=== PATIENT | female | born 2005 | race Caucasian/White ===

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

== ENCOUNTER 2024-12-10 06:12 | Emergency (ER) | payer OTHER, SELFPAY ==
--- NOTE | ~2024-12-10 | XR_ITS ---
Right Humerus Technique: AP and lateral views were obtained. Clinical History: Pain Findings: No fracture or dislocation is seen. Osseous alignment is anatomic. Visualized joint spaces are grossly preserved. Soft tissues are unremarkable. Impression: Unremarkable examination. No fracture or dislocation. Reviewed, dictated and finalized at location . Impression: Unremarkable examination. No fracture or dislocation.
--- OUTSIDE RECORDS SUMMARY | 2024-12-10 06:17 | XMS_ITS | Clinical Summary ---
Author Organization [facility] Address [address] [place] [address] Phone Care Team Providers Care Manager Of Development Name Role Phone Unavailable Unavailable Unavailable Reason for Visit and Chief Complaint no Pt presents for problem in addition to annual exam - The Chief Complaint is: PATIENT IS HERE FOR[facility] [employer] [employer]. PATIENT HAS A FEW QUESTIONS ABOUT HER SKIN TODAY Problems Includes: Problems addressed during this encounter and other active Problems Current Visit Onset Date Resolved Date Provider Conditio n Status Dermatitis 04/24/2015 ROGER GARCIA M.D. Inactive Last Documented On 10/23/2015 2:31PM ; [facility] Note: Unchanged Routine History and Physical Well Child (6 - 12 Yrs) 04/24/2015 ROGER GARCIA M.D. Inactive Last Documented On 10/23/2015 2:31PM ; [facility] Note: Unchanged Past Visits Onset Date Resolved Date Provider Condition Status Sinusitis Acute 10/23/2015 ROGER BYNUM M.D. Active Last Documented On 10/23/2015 2:31PM ; [facility] Note: Unchanged Viral Syndrome 10/23/2015 ROGER Nicholson M.D. Active Last Documented On 10/23/2015 2:31PM ; [facility] Note: Unchanged Cellulitis 04/10/2015 Unknown ROGER GARCIA M.D. Resolved Last Documented On 04/24/2015 5:23PM ; [facility] Note: Unchanged Knee Sprain 04/10/2015 Unknown ROGER GARCIA M.D. Resolved Last Documented On 04/24/2015 5:23PM ; [facility] Note: Unchanged Plan of Treatment Instructions to patient Instructions for patient Last Documented On 5 5:29PM ; [facility] Maintain a healthy diet Last Documented On 5 5:21PM ; [facility] No Special Instructions or D evices Last Documented On 5 5:21PM ; [facility] Education and Decision Aids were provided during visit for: Education and counseling Last Documented On 5 5:29PM ; [facility] Discussed safety practices Last Documented On 5 5:21PM ; [facility] Discussed nutritional needs Last Documented On 5 5:21PM ; [facility] Discussed education and care er Last Documented On 5 5:21PM ; [facility] Discussed activities Last Documented On 5 5:21PM ; [facility] Discussed concerns Last Documented On 5 5:21PM ; [facility] Assessments Includes: Assessments from this encounter Findings - Normal routine history and physical well-child (6 - 12) - Last Documented On 04/28/2015 2:10PM ; [facility] - Dermatitis - Last Documented On 04/28/2015 2:10PM ; [facility] Patient is approved for participation in School, Physical Education, and Sports for 1 year. - Last Documented On 04/28/2015 2:10PM ; [facility] Instructions Includes: Instructions from this encounter Instructions to patient Instructions for patient Last Documented On 5 5:29PM ; [facility] Maintain a healthy diet Last Documented On 5 5:21PM ; [facility] No Special Instructions or D evices Last Documented On 5 5:21PM ; [facility] Education and Decision Aids were provided during visit for: Education and counseling Last Documented On 5 5:29PM ; [facility] Discussed safety practices Last Documented On 5 5:21PM ; [facility] Discussed nutritional needs Last Documented On 5 5:21PM ; [facility] Discussed education and care er Last Documented On 5 5:21PM ; [facility] Discussed activities Last Documented On 5 5:21PM ; [facility] Discussed concerns Last Documented On 5 5:21PM ; [facility] Medical Equipment - Implanted Devices Includes: Current Devices No Medical Equipment Recorded Medications Includes: Medications discussed during this encounter and other current Medications Discontinued / Stopped on this date ROGER GARCIA M.D. on 04/07/2015 Clindamycin HCl 300 MG Capsule Provider: ROGER GARCIA M.D. Diagnosis: SPRAIN OF KNEE & LEG NOS Last Documented On 04/24/2015 2:35PM By MARTINA EAST MA ; [facility] New / Renewed during this visit ROGER GARCIA M.D. on 04/24/2015 Triamcinolone Acetonide 0.5 % Cream Provider: ROGER GARCIA M.D. 7 day supply: 1 tube, 0 refills Diagnosis: DERMATITIS NOS Apply twice a day Pharmacy: [facility] [address], [phone] - Last Documented On 5 1:17PM By SARAI CAMERON LPN ; [facility] Current Medications (continue as prescribed) Amoxicillin 400 MG/5ML Suspension Reconstituted 10/23/2015 Provider: ROGER GARCIA M.D. Diagnosis: Acute maxillary sinusitis, unspecified 2 tsp bid Last Documented On 10/23/2015 4:40PM By ROGER GARCIA MD ; [facility] Past Medications on file ZyrTEC Allergy 10 MG Tablet 07/19/2015 - 08/18/2015 Provider: RALF MIRANDA [facility]- Diagnosis: Acute nasopharyn gitis [common cold] One tablet daily Last Documented On 5 1:59PM By [facility]F [facility] ; [facility] Malathion 0.5% EX LOTN 12/15/2014 - 12/29/2014 Provide r: ROGER GARCIA M.D. Diagnosis: use as directed on package Last Documented On 5 9:11AM By SARAI CAMERON LPN ; [facility] Fluconazole 150 MG OR TABS 12/04/2012 - 12/06/2012 Pro vider: ROGER GARCIA M.D. Diagnosis: 1/2 tablet today then repeat after 1 week Last Documented On 12/04/2012 4:07PM By ROGER GARCIA MD ; [facility] Medications Administered Includes: Administered Medications from this encounter No Administered Medications Recorded Vital Signs Includes: Vital Signs from this encounter Vital Name 04/24/2015 02:32P Blood Pressure Sitting (mmHg) 100/62 Temp-Tympanic (F) 98.2 Height (in) 57.5 Weight (lb) 87 Body Mass Index (kg/m2) 18.5 BMI Percentile (percentile) 57 Body Surface Area (m2) 1.3 Last Documented: On 04/24/2015 2:36PM ; [facility] Results Includes: Results discussed during this encounter Urinalysis Manual Lab Entry Ordered by ROGER GARCIA M.D. on 2014 Collected: Reported: 04/24/2015 07:58 Last Documented On 5 7:58AM ; [facility] Reviewed on 04/26/2015; All test results are final unless otherwise noted. color YELLOW (Straw-yellow) N (Normal) Last Documented On 5 7:58AM ; [facility] clarity CLEAR (clear) N (Normal) Last Documented On 5 7:58AM ; [facility] Glucose NEG (70-150mg/dL) N (Normal) Last Documented On 5 7:58AM ; [facility] Bilirubin NEG N (Normal) Last Documented On 5 7:58AM ; [facility] Ketone NEG N (Normal) Last Documented On 5 7:58AM ; [facility] SP [place] 1.030 (1.003-1.040) N (Normal) Last Documented On 5 7:58AM ; [facility] pH 5.0 (5.00-9.00) N (Normal) Last Documented On 5 7:58AM ; [facility] Protein NEG N (Normal) Last Documented On 5 7:58AM ; [facility] Urobilinogen 0.2 (0.2-1.0 EU/dL) N (Normal) Last Documented On 5 7:58AM ; [facility] Nitrate NEG N (Normal) Last Documented On 5 7:58AM ; [facility] Blood NEG N (Normal) Last Documented On 5 7:58AM ; [facility] Leukocyte NEG N (Normal) Last Documented On 5 7:58AM ; [facility] History of Present Illness Includes: History of Present Illness from this encounter MECHELLE LIU is a 9 year old female. Source of patient information was another person grandma Source of patient information was patient - Feeling fine - No fever - No eye symptoms - No chest pain or discomfort - No shortness of breath - Cough not causing awakening from sleep - No genitourinary symptoms - No dizziness - No previous history of fainting - No previous history of convulsions - Skin lesion: Social History Description Last Updated Smoking status : Never smoker 04/26/2015 Last Documented On 5 2:10PM ; [facility] Nutritional quality of diet 04/24/2015 Last Documented On 5 2:10PM ; [facility] Nutritious and satisfying diet 5 Last Documented On 5 2:10PM ; [facility] The racial background was unknown ethnic minority 04/24/2015 Last Documented On 5 2:10PM ; [facility] No tobacco use 04/24/2015 Last Documented On 5 2:10PM ; [facility] Not using alcohol 04/24/2015 Last Documented On 5 2:10PM ; [facility] Not using drugs 04/24/2015 Last Documented On 5 2:10PM ; [facility] Procedures and Surgical History Includes: Procedures from this encounter Procedures Code Diagnosis Performing Provider Service L ocation Service Date diet Last Documented On 5 5:21PM ; [facility] education and instructions Last Documented On 5 5:29PM ; [facility] physician's services completed State [facility] sical Form Last Documented On 5 5:21PM ; [facility] Child allowed to participate in Sports Last Documented On 5 5:21PM ; [facility] Child allowed to participate in P.E Last Documented On 5 5:21PM ; [facility] plan of care reviewed and agreed to prev entive care Last Documented On 5 5:21PM ; [facility] SCHOOL/SPORT PHYSICAL Last Documented On 5 5:21PM ; [facility] Mental Health: There is no i nformation the school should know about this student Last Documented On 5 5:21PM ; [facility] No emergency action needed [facility] at [facility] to child's health condition Last Documented On 5 5:21PM ; [facility] Discussed Healthy Eating Last Documented On 5 5:21PM ; [facility] Discussed Exercise Last Documented On 5 5:21PM ; [facility] Clinical summary provided to patient Last Documented On 5 5:29PM ; [facility] Medical History Includes: Medical History addressed during this encounter Description Last Updated No other medical history reported Signs of Insulin Resistance 04/24/2015 Last Documented On 5 2:10PM ; [facility] A PPD was negative 04/24/2015 Last Documented On 5 2:10PM ; [facility] Blood pressure was not high 04/24/2015 Last Documented On 5 2:10PM ; [facility] No cardiac problems 04/24/2015 Last Documented On 5 2:10PM ; [facility] No exposure to tuberculosis 04/24/2015 Last Documented On 5 2:10PM ; [facility] No hearing problems 04/24/2015 Last Documented On 5 2:10PM ; [facility] No heart murmur 04/24/2015 Last Documented On 5 2:10PM ; [facility] No history of asthma 04/24/2015 Last Documented On 5 2:10PM ; [facility] No history of concussion 04/24/2015 Last Documented On 5 2:10PM ; [facility] No history of delayed milestones 015 Last Documented On 5 2:10PM ; [facility] No history of diabetes mellitus 04/24/20 15 Last Documented On 5 2:10PM ; [facility] No history of hematologic disorder 04/24 Last Documented On 5 2:10PM ; [facility] No history of sickle cell abnormality Last Documented On 5 2:10PM ; [facility] No loss of function of one of paired org ans 04/24/2015 Last Documented On 5 2:10PM ; [facility] No orthopedic problems 04/24/2015 Last Documented On 5 2:10PM ; [facility] No previous hospitalizations 04/24/2015 Last Documented On 5 2:10PM ; [facility] No recent severe illness or injury 04/24 Last Documented On 5 2:10PM ; [facility] No Surgery 04/24/2015 Last Documented On 5 2:10PM ; [facility] No trauma to the head 04/24/2015 Last Documented On 5 2:10PM ; [facility] Not born with congenital abnormalities 0 04/24/2015 Last Documented On 5 2:10PM ; [facility] Not carrier of hemophilia A 04/24/2015 Last Documented On 5 2:10PM ; [facility] Family History Includes: Family History addressed during this encounter Description Last Updated Family history of diabetes mellitus 11/2014 Last Documented On 5 5:23PM ; [facility] No family history of diabetes mellitus 0 04/24/2015 Last Documented On 5 2:10PM ; [facility] No family history of sudden early deaths 04/24/2015 Last Documented On 5 2:10PM ; [facility] Cancer 04/03/2011 Last Documented On 5 5:23PM ; [facility] Family history of arthritis 04/03/2011 Last Documented On 5 5:23PM ; [facility] Family history of blood pressure was hig h 04/03/2011 Last Documented On 5 5:23PM ; [facility] Family history of stroke syndrome 2010 Last Documented On 5 5:23PM ; [facility] Review of Systems Includes: Review of Systems from this encounter Systemic: No systemic symptoms. Head: No head symptoms. Neck: No neck symptoms. Eyes: No eye symptoms. Otolaryngeal: No otolaryngeal symptoms. Breasts: No breast symptoms. Cardiovascular: No cardiovascular symptoms. Pulmonary: No pulmonary symptoms. Gastrointestinal: No gastrointestinal symptoms. Genitourinary: No genitourinary symptoms. Endocrine: No endocrine symptoms. Hematologic: No hematologic symptoms. Musculoskeletal: No musculoskeletal symptoms. Neurological: No neurological symptoms. Psychological: No psychological symptoms. Skin: Skin lesion: Mental Status Includes: Mental Status from this encounter No Mental Status Recorded Functional Status Includes: Functional Status from this encounter No Functional Status Recorded Physical Exam Includes: Physical Exam from this encounter Immunizations Includes: Immunizations addressed during this encounter Vaccine Dose # Date Site Reaction(s) Status Source Hep A, ped/adol, (HAVRIX-PEDS)- 2 dose 1 04/24/2015 Right Arm Complete (Administered) [facility] Last Documented On 5 4:18PM ; [facility] HPV, (quadrivalent) Gardasil 1 04/24/2015 Left Arm Complete (Administered) [facility] Last Documented On 5 4:18PM ; [facility] Meningococcal ACYW-135 (Menactra) 1 04/24/2015 Left Arm Complete (Administered) [facility] Last Documented On 5 4:18PM ; [facility] Tdap (Boostrix) 1 04/24/2015 Right Arm Complete (A dministered) [facility] Last Documented On 5 4:18PM ; [facility] Varicella (Chickenpox) 1 04/24/2015 Right Arm Complete (Administered) [facility] Last Documented On 5 4:18PM ; [facility] Allergies Includes: Active Allergies No Known Allergies Encounters Encounter Provider Location Date Check-In Time Check-Out Time Diagnosis [facility] ROGER GARCIA M.D. [facility] 04/24/20 15 2:17PM 3:11PM Dermatitis,A ssessment [use For S.o.a.p. Note Free Text],Routin e History and Physical Well Child (6 - 12 Yrs) Clinical Notes Includes: Clinical Notes from this encounter No Clinical Notes Recorded
[2024-12-10 06:18] VITALS: BP 134/90; PULSE 83; RESP 18; TEMP 36.8; O2SAT 100
--- OUTSIDE RECORDS SUMMARY | 2024-12-10 06:18 | XMS_ITS | Clinical Summary ---
Author Organization [facility] Address [address] [place] [address] Phone Care Team Providers Care Cook Roast Name Role Phone Unavailable Unavailable Unavailable Reason for Visit and Chief Complaint The Chief Complaint is: Nasal congestion and sinus drainage for past 5 days; coughing due to drainage; taking benadryl at night Problems Includes: Problems addressed during this encounter and other active Problems All Visits Onset Date Resolved Date Provider Condition S tatus Sinusitis Acute 10/23/2015 ROGER BYNUM M.D. Active Last Documented On 10/23/2015 2:31PM ; [facility] Note: Unchanged Viral Syndrome 10/23/2015 ROGER Nicholson M.D. Active Last Documented On 10/23/2015 2:31PM ; [facility] Note: Unchanged Plan of Treatment - Return to the clinic if condition worsens or new symptoms arise - Last Documented On 07/19/2015 2:07PM ; [facility] - Patient will call for appointment as needed - Last Documented On 07/19/2015 2:07PM ; [facility] Instructions to patient Instructions for patient Last Documented On 5 1:49PM ; [facility] Assessments Includes: Assessments from this encounter Findings - Common cold - Last Documented On 07/19/2015 2:07PM ; [facility] Instructions Includes: Instructions from this encounter Instructions to patient Instructions for patient Last Documented On 5 1:49PM ; [facility] Medical Equipment - Implanted Devices Includes: Current Devices No Medical Equipment Recorded Medications Includes: Medications discussed during this encounter and other current Medications New / Renewed during this visit RALF MIRANDA [place] on 07/19/2015 ZyrTEC Allergy 10 MG Tablet Provider: RALF MIRANDA [facility]- 30 day supply: 30 tablet, 0 refills Diagnosis: Acute nasopharyngitis [commo n cold] One tablet daily Pharmacy: [facility] [address], [id number] - Last Documented On 5 1:59PM By RALF MIRANDA [facility] ; [facility] Current Medications (continue as prescribed) Amoxicillin 400 MG/5ML Suspension Reconstituted 10/23/2015 Provider: ROGER GARCIA M.D. Diagnosis: Acute maxillary sinusitis, unspecified 2 tsp bid Last Documented On 10/23/2015 4:40PM By ROGER GARCIA MD ; [facility] Past Medications on file Malathion 0.5% EX LOTN 12/15/2014 - 12/29/2014 Provide r: ROGER GARCIA M.D. Diagnosis: use as directed on package Last Documented On 5 9:11AM By SARAI CAMERON LPN ; [facility] Fluconazole 150 MG OR TABS 12/04/2012 - 12/06/2012 Pro vider: ROGER GARCIA M.D. Diagnosis: 1/2 tablet today then repeat after 1 week Last Documented On 12/04/2012 4:07PM By ROGER GARCIA MD ; [facility] Medications Administered Includes: Administered Medications from this encounter No Administered Medications Recorded Vital Signs Includes: Vital Signs from this encounter Vital Name 07/19/2015 01:33P Blood Pressure Sitting (mmHg) 102/60 Temp-Tympanic (F) 97.7 Height (in) 57.5 Weight (lb) 91.8 Body Mass Index (kg/m2) 19.5 BMI Percentile (percentile) 67 Body Surface Area (m2) 1.3 Last Documented: On 07/19/2015 1:38PM ; [facility] Results Includes: Results discussed during this encounter No Results Recorded For Specified Dates History of Present Illness Includes: History of Present Illness from this encounter MECHELLE LIU is a 9 year old female. Source of patient information was mother Source of patient information was patient ? Medication list reviewed - Patient accompanied by mother - Duration of symptoms for 5 days - Previously well - No fever - No chills - No headache - No sinus pain - No sinus pressure - No swollen glands in the neck - No itching of the eyes - No discharge from the eyes - Nasal discharge - Postnasal drip - Nasal passage blockage (stuffiness) - Sneezing - No earache - The ears do not feel pressured - The ears do not feel full - No discharge from the ears - No hoarseness - No sore throat - No itchy throat - No chest pain or discomfort - No palpitations - Cough dry - Non-productive - Not feeling congested in the chest - No dyspnea - No wheezing - No rash Symptoms started 5 days ago. [place] reports that she is feeling better now than when it started and everyday feels a little better. Taking benadryl at night only. No other OTC meds. Mom reports that she brought her in because she has a soccer game on Friday that she needs to be well for. Social History Description Last Updated Currently in school 10/23/2015 Last Documented On 5 1:49PM ; [facility] No recent decrease in exercise activity 07/19/2015 Last Documented On 5 2:07PM ; [facility] Smoking status : Never smoker 04/26/2015 Last Documented On 5 1:49PM ; [facility] Nutritional quality of diet 04/24/2015 Last Documented On 5 1:49PM ; [facility] Nutritious and satisfying diet Last Documented On 5 1:49PM ; [facility] The racial background was unknown ethnic minority 04/24/2015 Last Documented On 5 1:49PM ; [facility] Not using alcohol 04/24/2015 Last Documented On 5 1:49PM ; [facility] Not using drugs 04/24/2015 Last Documented On 5 1:49PM ; [facility] Child cared for at home 02/18/2014 Last Documented On 5 1:49PM ; [facility] Procedures and Surgical History Includes: Procedures from this encounter Procedures Code Diagnosis Performing Provider Service L ocation Service Date Patient verbalizes understanding Last Documented On 5 1:49PM ; [facility] Increase fluids Last Documented On 5 1:49PM ; [facility] Clinical summary provided to patient Last Documented On 5 1:49PM ; [facility] Medical History Includes: Medical History addressed during this encounter Description Last Updated No recent change in medical history 05/23 Last Documented On 5 1:49PM ; [facility] No other medical history reported Signs of Insulin Resistance 04/24/2015 Last Documented On 5 1:49PM ; [facility] A PPD was negative 04/24/2015 Last Documented On 5 1:49PM ; [facility] Blood pressure was not high 04/24/2015 Last Documented On 5 1:49PM ; [facility] No cardiac problems 04/24/2015 Last Documented On 5 1:49PM ; [facility] No exposure to tuberculosis 04/24/2015 Last Documented On 5 1:49PM ; [facility] No hearing problems 04/24/2015 Last Documented On 5 1:49PM ; [facility] No heart murmur 04/24/2015 Last Documented On 5 1:49PM ; [facility] No history of asthma 04/24/2015 Last Documented On 5 1:49PM ; [facility] No history of concussion 04/24/2015 Last Documented On 5 1:49PM ; [facility] No history of delayed milestones 015 Last Documented On 5 1:49PM ; [facility] No history of diabetes mellitus 04/24/20 15 Last Documented On 5 1:49PM ; [facility] No history of hematologic disorder 04/24 Last Documented On 5 1:49PM ; [facility] No history of sickle cell abnormality Last Documented On 5 1:49PM ; [facility] No loss of function of one of paired org ans 04/24/2015 Last Documented On 5 1:49PM ; [facility] No orthopedic problems 04/24/2015 Last Documented On 5 1:49PM ; [facility] No previous hospitalizations 04/24/2015 Last Documented On 5 1:49PM ; [facility] No recent severe illness or injury 04/24 Last Documented On 5 1:49PM ; [facility] No Surgery 04/24/2015 Last Documented On 5 1:49PM ; [facility] No trauma to the head 04/24/2015 Last Documented On 5 1:49PM ; [facility] Not born with congenital abnormalities 0 04/24/2015 Last Documented On 5 1:49PM ; [facility] Not carrier of hemophilia A 04/24/2015 Last Documented On 5 1:49PM ; [facility] Born by vaginal delivery 04/03/2011 Last Documented On 5 1:49PM ; [facility] Gestational age: 37 04/03/2011 Last Documented On 5 1:49PM ; [facility] History of length at 19:1/2 in Last Documented On 5 1:49PM ; [facility] Patient's weight 6:3 lbs 1 Last Documented On 5 1:49PM ; [facility] Family History Includes: Family History addressed during this encounter Description Last Updated Family history unchanged 06/09/2015 Last Documented On 5 1:49PM ; [facility] No family history of diabetes mellitus 0 04/24/2015 Last Documented On 5 1:49PM ; [facility] No family history of sudden early deaths 04/24/2015 Last Documented On 5 1:49PM ; [facility] Cancer 04/03/2011 Last Documented On 5 1:49PM ; [facility] Family history of arthritis 04/03/2011 Last Documented On 5 1:49PM ; [facility] Family history of blood pressure was hig h 04/03/2011 Last Documented On 5 1:49PM ; [facility] Family history of stroke syndrome 2010 Last Documented On 5 1:49PM ; [facility] Review of Systems Includes: Review of Systems from this encounter No Review of Systems Recorded Mental Status Includes: Mental Status from this encounter Description Oriented to time, place, and person Functional Status Includes: Functional Status from this encounter No Functional Status Recorded Physical Exam Includes: Physical Exam from this encounter Allergies Includes: Active Allergies No Known Allergies Encounters Encounter Provider Location Date Check-In Time Check-Out Time Diagnosis SAME DAY SICK VISIT RALF MIRANDA HNP- [facility] 07/19/20 15 1:22PM 1:59PM Common Cold Clinical Notes Includes: Clinical Notes from this encounter No Clinical Notes Recorded
--- OUTSIDE RECORDS SUMMARY | 2024-12-10 06:18 | XMS_ITS | Clinical Summary ---
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 Gender Identity Not on file Sexual Orientation Not on file Plan of Treatment Health Maintenance Due Date Last Done Comments Cervical Cancer Screening Pa p Smear (Age 21 to 29) Every 3 Years 2003 Cervical Cancer Screening 2003 Annual Physical 2006 HPV Vaccines (1 - 3-dose series) 2018 Meningococcal B Vaccine (1 o f 2 - Standard) 2019 Hepatitis C 2021 DTaP, Tdap and Td Vaccines ( 1 - Tdap) 2022 Hepatitis B Vaccines (1 of 3 - 19+ 3-dose series) 2022 COVID-19 Vaccine (1 - 2023-2 5 season) 2024 Influenza Adult (#1) 2024 Meningococcal Vaccine Aged Out No fermin filiberto eligible based on patient's age to complete this topic Pneumococcal Vaccine: Pediat rics (0 to 5 Years) and At-Risk Patients (6 to 64 Years) Aged Out No longer eligible b ased on patient's age to complete this topic RSV Immunizations Under 20 Months Aged Out No longer eligible based on patient's age to complete this topic
--- OUTSIDE RECORDS SUMMARY | 2024-12-10 06:18 | XMS_ITS | Clinical Summary ---
Author Organization [facility] Address [address] [place] [address] Phone Care Team Providers Care Computer Technologist Name Role Phone Unavailable Unavailable Unavailable Reason for Visit and Chief Complaint The Chief Complaint is: Burning with urination and lower abdominal pain for past week; also noticedsome blood in toilet and on tissue after last 3 bowel movements Problems Includes: Problems addressed during this encounter and other active Problems All Visits Onset Date Resolved Date Provider Condition S tatus Sinusitis Acute 10/23/2015 ROGER BYNUM M.D. Active Last Documented On 10/23/2015 2:31PM ; [facility] Note: Unchanged Viral Syndrome 10/23/2015 ROGER Nicholson M.D. Active Last Documented On 10/23/2015 2:31PM ; [facility] Note: Unchanged Plan of Treatment - Return to the clinic if condition worsens or new symptoms arise - Last Documented On 06/09/2015 1:47PM ; [facility] - Patient will call for appointment as needed - Last Documented On 06/09/2015 1:47PM ; [facility] Assessments Includes: Assessments from this encounter Findings - Constipation - Last Documented On 06/09/2015 1:47PM ; [facility] - Dysuria - Last Documented On 06/09/2015 1:47PM ; [facility] Medical Equipment - Implanted Devices Includes: Current Devices No Medical Equipment Recorded Medications Includes: Medications discussed during this encounter and other current Medications Discontinued / Stopped on this date ROGER GARCIA M.D. on 04/24/2015 Triamcinolone Acetonide 0.5 % Cream Provi dianna: ROGER GARCIA M.D. Diagnosis: DERMATITIS NOS Last Documented On 5 1:17PM By SARAI CAMERON LPN ; [facility] Current Medications (continue as prescribed) Amoxicillin 400 MG/5ML Suspension Reconstituted 10/23/2015 Provider: ROGER GARCIA M.D. Diagnosis: Acute maxillary sinusitis, unspecified 2 tsp bid Last Documented On 10/23/2015 4:40PM By ROGER GARCIA MD ; [facility] Past Medications on file ZyrTEC Allergy 10 MG Tablet 07/19/2015 - 08/18/2015 Provider: RALF MIRANDA [facility]- MANUFACTURING ENGINEERING PROFESSOR- Diagnosis: Acute nasopharyn gitis [common cold] One tablet daily Last Documented On 5 1:59PM By RALF MIRANDA [facility]- ; [facility] Malathion 0.5% EX LOTN 12/15/2014 - 12/29/2014 Provide r: ROGER GARCIA M.D. Diagnosis: use as directed on package Last Documented On 5 9:11AM By SARAI CAMERON LPN ; [facility] Fluconazole 150 MG OR TABS 12/04/2012 - 12/06/2012 Pro vider: ROGER GARCIA M.D. Diagnosis: 1/2 tablet today then repeat after 1 week Last Documented On 12/04/2012 4:07PM By ROGER GARCIA MD ; [facility] Medications Administered Includes: Administered Medications from this encounter No Administered Medications Recorded Vital Signs Includes: Vital Signs from this encounter Vital Name 06/09/2015 01:10P Blood Pressure Sitting (mmHg) 110/70 Temp-Tympanic (F) 97.9 Height (in) 57.5 Weight (lb) 91 Body Mass Index (kg/m2) 19.4 BMI Percentile (percentile) 67 Body Surface Area (m2) 1.3 Last Documented: On 06/09/2015 1:16PM ; [facility] Results Includes: Results discussed during this encounter Urinalysis Manual Lab Entry Ordered by RALF MIRANDA [facility]- on 06/09/2015 Collected: Reported: 06/09/2015 13:25 Last Documented On 5 1:25PM ; [facility] Reviewed on 06/09/2015; All test results are final unless otherwise noted. color yellow (Straw-yellow) N (Normal) Last Documented On 5 1:25PM ; [facility] clarity clear (clear) N (Normal) Last Documented On 5 1:25PM ; [facility] Glucose neg (70-150mg/dL) N (Normal) Last Documented On 5 1:25PM ; [facility] Bilirubin neg N (Normal) Last Documented On 5 1:25PM ; [facility] Ketone neg N (Normal) Last Documented On 5 1:25PM ; [facility] SP [place] 1.025 (1.003-1.040) N (Normal) Last Documented On 5 1:25PM ; [facility] pH 7.0 (5.00-9.00) N (Normal) Last Documented On 5 1:25PM ; [facility] Protein neg N (Normal) Last Documented On 5 1:25PM ; [facility] Urobilinogen 0.2 (0.2-1.0 EU/dL) N (Normal) Last Documented On 5 1:25PM ; [facility] Nitrate neg N (Normal) Last Documented On 5 1:25PM ; [facility] Blood neg N (Normal) Last Documented On 5 1:25PM ; [facility] Leukocyte neg N (Normal) Last Documented On 5 1:25PM ; [facility] History of Present Illness Includes: History of Present Illness from this encounter MECHELLE LIU is a 9 year old female. Source of patient information was mother Source of patient information was patient ? Medication list reviewed - Patient accompanied by mother - Duration of symptoms for 1 week - No fever - No chills - No recent weight loss - No dyspnea - No cough - Suprapubic pain -intermittent - Red blood on the surface of the stool - on toilet paper after having BM - Constipation with straining - Constipation - Normal appetite - No nausea - No vomiting - No bloating - No flatus - No diarrhea - Dysuria -intermittent- better now - Burning sensation during urination -intermittent-better now - No hematuria - No cloudy urine - No foul-smelling urine - No increase in urinary frequency - No urinary urgency - No flank pain Reports having burning with urination for a week that is intermittent and is better now than it was. Constipation issues that started when school started but worse past week. She reports she does not want to poop at school because she fears someone might walk in on her and tell the whole school. She reports that she has to push when having a BM. Noticed having blood on toilet paper after bowel movement x 3 episodes. Reports small amount of blood that is bright red on toilet paper. Denies stool in stool. Does not want her bottom looked at. Does not drink much water. Has bowel movement every 3 or more days. Social History Description Last Updated Currently in school 10/23/2015 Last Documented On 5 1:17PM ; [facility] Smoking status : Never smoker 04/26/2015 Last Documented On 5 1:17PM ; [facility] Nutritional quality of diet 04/24/2015 Last Documented On 5 1:17PM ; [facility] Nutritious and satisfying diet 5 Last Documented On 5 1:17PM ; [facility] The racial background was unknown ethnic minority 04/24/2015 Last Documented On 5 1:17PM ; [facility] Not using alcohol 04/24/2015 Last Documented On 5 1:17PM ; [facility] Not using drugs 04/24/2015 Last Documented On 5 1:17PM ; [facility] Procedures and Surgical History Includes: Procedures from this encounter Procedures Code Diagnosis Performing Provider Service L ocation Service Date Clinical summary provided to patient Last Documented On 5 1:17PM ; [facility] Medical History Includes: Medical History addressed during this encounter Description Last Updated No recent change in medical history 05/23 Last Documented On 5 1:47PM ; [facility] No other medical history reported Signs of Insulin Resistance 04/24/2015 Last Documented On 5 1:17PM ; [facility] A PPD was negative 04/24/2015 Last Documented On 5 1:17PM ; [facility] Blood pressure was not high 04/24/2015 Last Documented On 5 1:17PM ; [facility] No cardiac problems 04/24/2015 Last Documented On 5 1:17PM ; [facility] No exposure to tuberculosis 04/24/2015 Last Documented On 5 1:17PM ; [facility] No hearing problems 04/24/2015 Last Documented On 5 1:17PM ; [facility] No heart murmur 04/24/2015 Last Documented On 5 1:17PM ; [facility] No history of asthma 04/24/2015 Last Documented On 5 1:17PM ; [facility] No history of concussion 04/24/2015 Last Documented On 5 1:17PM ; [facility] No history of delayed milestones 015 Last Documented On 5 1:17PM ; [facility] No history of diabetes mellitus 04/24/20 15 Last Documented On 5 1:17PM ; [facility] No history of hematologic disorder 04/24 Last Documented On 5 1:17PM ; [facility] No history of sickle cell abnormality Last Documented On 5 1:17PM ; [facility] No loss of function of one of paired org ans 04/24/2015 Last Documented On 5 1:17PM ; [facility] No orthopedic problems 04/24/2015 Last Documented On 5 1:17PM ; [facility] No previous hospitalizations 04/24/2015 Last Documented On 5 1:17PM ; [facility] No recent severe illness or injury 04/24 Last Documented On 5 1:17PM ; [facility] No Surgery 04/24/2015 Last Documented On 5 1:17PM ; [facility] No trauma to the head 04/24/2015 Last Documented On 5 1:17PM ; [facility] Not born with congenital abnormalities 0 04/24/2015 Last Documented On 5 1:17PM ; [facility] Not carrier of hemophilia A 04/24/2015 Last Documented On 5 1:17PM ; [facility] Born by vaginal delivery 04/03/2011 Last Documented On 5 1:17PM ; [facility] Gestational age: 37 04/03/2011 Last Documented On 5 1:17PM ; [facility] History of length at 19:1/2 in Last Documented On 5 1:17PM ; [facility] Patient's weight 6:3 lbs 1 Last Documented On 5 1:17PM ; [facility] Family History Includes: Family History addressed during this encounter Description Last Updated Family history unchanged 06/09/2015 Last Documented On 5 1:47PM ; [facility] No family history of diabetes mellitus 0 04/24/2015 Last Documented On 5 1:17PM ; [facility] No family history of sudden early deaths 04/24/2015 Last Documented On 5 1:17PM ; [facility] Cancer 04/03/2011 Last Documented On 5 1:17PM ; [facility] Family history of arthritis 04/03/2011 Last Documented On 5 1:17PM ; [facility] Family history of blood pressure was hig h 04/03/2011 Last Documented On 5 1:17PM ; [facility] Family history of stroke syndrome 2010 Last Documented On 5 1:17PM ; [facility] Review of Systems Includes: Review of Systems [...] Location Date Check-In Time Check-Out Time Diagnosis PROBLEM VISIT RALF MIRANDA PMHNP-[facility] MANUFACTURING ENGINEERING PROFESSOR-[facility] 06/09/20 15 1:00PM 1:40PM Constipation ,Dysuria Clinical Notes Includes: Clinical Notes from this encounter No Clinical Notes Recorded
--- OUTSIDE RECORDS SUMMARY | 2024-12-10 06:18 | XMS_ITS | Clinical Summary ---
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 Active Last Documented On 10/23/2015 2:31PM ; [facility] Note: Unchanged Viral Syndrome 10/23/2015 ROGER Nicholson M.D. Active Last Documented On 10/23/2015 2:31PM ; [facility] Note: Unchanged Sinusitis Acute 02/18/2014 Unknown ROGER BYNUM M.D. Resolved Last Documented On 12/05/2014 3:22PM ; [facility] Note: Unchanged Past Visits Onset Date Resolved Date Provider Condition Status Dermatitis 04/24/2015 ROGER GARCIA M.D. Inactive Last Documented On 10/23/2015 2:31PM ; [facility] Note: Unchanged Routine History and Physical Well Child (6 - 12 Yrs) 04/24/2015 ROGER GARCIA M.D. Inactive Last Documented On 10/23/2015 2:31PM ; [facility] Note: Unchanged Plan of Treatment - Return to the clinic if condition worsens or new symptoms arise - Last Documented On 10/23/2015 2:32PM ; [facility] - Follow-up visit as needed with an office visit. - Last Documented On 10/23/2015 2:32PM ; [facility] - Patient to call if problem develops - Last Documented On 10/23/2015 2:32PM ; [facility] Instructions to patient Instructions for patient Last Documented On 6 2:32PM ; [facility] Education and Decision Aids were provided during visit for: Patient education about anti biotics: need to finish even if feeling better Last Documented On 6 2:31PM ; [facility] Assessments Includes: Assessments from this encounter Findings - Acute sinusitis - Last Documented On 10/23/2015 2:32PM ; [facility] - Viral syndrome - Last Documented On 10/23/2015 2:32PM ; [facility] Instructions Includes: Instructions from this encounter Instructions to patient Instructions for patient Last Documented On 6 2:32PM ; [facility] Education and Decision Aids were provided during visit for: Patient education about anti biotics: need to finish even if feeling better Last Documented On 6 2:31PM ; [facility] Medical Equipment - Implanted Devices Includes: Current Devices No Medical Equipment Recorded Medications Includes: Medications discussed during this encounter and other current Medications New / Renewed during this visit ROGER GARCIA M.D. on 10/23/2015 Amoxicillin 400 MG/5ML Suspension Reconstituted Provider: ROGER GARCIA M.D. 10 day supply: 200 mL, 0 refills Diagnosis: Acute maxillary sinusitis, unspecified 2 tsp bid Pharmacy: [facility] [address], [phone] - Last Documented On 10/23/2015 4:40PM By ROGER GARCIA MD ; [facility] Past Medications on file ZyrTEC Allergy 10 MG Tablet 07/19/2015 - 08/18/2015 [facility] CRIMINAL INTELLIGENCE ANALYST- Diagnosis: Acute nasopharyn gitis [common cold] One tablet daily Last Documented On 5 1:59PM By RALF MIRANDA CRIMINAL INTELLIGENCE ANALYST- ; [facility] Malathion 0.5% EX LOTN 12/15/2014 - 12/29/2014 Provide r: ROGER GARCIA M.D. Diagnosis: use as directed on package Last Documented On 5 9:11AM By SARAI CAMERON LPN ; [facility] Fluconazole 150 MG OR TABS 12/04/2012 - 12/06/2012 Pro vider: ROGER GARCIA M.D. Diagnosis: 1/2 tablet today then repeat after 1 week Last Documented On 12/04/2012 4:07PM By ROGER GARCIA MD ; [facility] Medications Administered Includes: Administered Medications from this encounter No Administered Medications Recorded Vital Signs Includes: Vital Signs from this encounter Vital Name 10/23/2015 02:12P Temp-Tympanic (F) 98.3 Height (in) 59 Weight (lb) 100 Body Mass Index (kg/m2) 20.2 BMI Percentile (percentile) 73 Body Surface Area (m2) 1.4 Last Documented: On 10/23/2015 2:13PM ; [facility] Results Includes: Results discussed during this encounter No Results Recorded For Specified Dates History of Present Illness Includes: History of Present Illness from this encounter MECHELLE LIU is a 10 year old female. Source of patient information was another person grandma Source of patient information was patient - Not feeling fine - No fever - Sinus pain - Nasal discharge yellow - Purulent - Nasal passage blockage (stuffiness) - Sneezing - Sore throat comes and goes - Cough during the day - During the night - No dyspnea - No wheezing - Appetite not normal - Decreased appetite Social History Description Last Updated Currently in school 10/23/2015 Last Documented On 6 2:32PM ; [facility] Smoking Status Unknown Procedures and Surgical History Includes: Procedures from this encounter Procedures Code Diagnosis Performing Provider Service L ocation Service Date medication instruction Last Documented On 6 2:31PM ; [facility] the options include decongestants as nee ded per product instructions Last Documented On 6 2:29PM ; [facility] the options include antihistamines as ne eded per product instructions Last Documented On 6 2:29PM ; [facility] education and instructions Last Documented On 6 2:32PM ; [facility] the options include close observation Last Documented On 6 2:29PM ; [facility] Pt to use OTC expectorant product as nee ded per product instruction.~ Last Documented On 6 2:29PM ; [facility] Pt to use prescription as ordered. Purpo se of and use of medication discussed.~ Last Documented On 6 2:29PM ; [facility] plan of care reviewed and agreed to nader khan Last Documented On 6 2:31PM ; [facility] Clinical summary provided to patient Last Documented On 6 2:32PM ; [facility] Medical History Includes: Medical History addressed during this encounter No Medical History Recorded Family History Includes: Family History addressed during this encounter Description Last Updated Family history unchanged 06/09/2015 Last Documented On 6 2:31PM ; [facility] No family history of diabetes mellitus 0 04/24/2015 Last Documented On 6 2:31PM ; [facility] No family history of sudden early deaths 04/24/2015 Last Documented On 6 2:31PM ; [facility] Cancer 04/03/2011 Last Documented On 6 2:31PM ; [facility] Family history of arthritis 04/03/2011 Last Documented On 6 2:31PM ; [facility] Family history of blood pressure was hig h 04/03/2011 Last Documented On 6 2:31PM ; [facility] Family history of stroke syndrome 2010 Last Documented On 6 2:31PM ; [facility] Review of Systems Includes: Review of Systems from this encounter Systemic: No systemic symptoms and no fever. Head: No head symptoms. Neck: No neck symptoms. Eyes: No eye symptoms. Otolaryngeal: Nasal discharge and sore throat. Breasts: No breast symptoms. Cardiovascular: No cardiovascular symptoms. Pulmonary: Cough. No wheezing. Gastrointestinal: No gastrointestinal symptoms. Genitourinary: No genitourinary symptoms. Endocrine: No endocrine symptoms. Hematologic: No hematologic symptoms. Musculoskeletal: No musculoskeletal symptoms. Neurological: No neurological symptoms. Psychological: No psychological symptoms. Skin: No skin symptoms. Mental Status Includes: Mental Status from this encounter Description Oriented to time, place, and person Functional Status Includes: Functional Status from this encounter No Functional Status Recorded Physical Exam Includes: Physical Exam from this encounter Allergies Includes: Active Allergies No Known Allergies Encounters Encounter Provider Location Date Check-In Time Check-Out Time Diagnosis SAME DAY SICK VISIT ROGER GARCIA M.D. [facility] 10/23/19 16 2:15PM 2:28PM Sinusitis Acute,Viral Syndrome Clinical Notes Includes: Clinical Notes from this encounter No Clinical Notes Recorded
--- OUTSIDE RECORDS SUMMARY | 2024-12-10 06:18 | XMS_ITS ---
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
--- OUTSIDE RECORDS SUMMARY | 2024-12-10 06:18 | XMS_ITS | Clinical Summary ---
Author Organization [facility] Address [address] [place] [address] Phone Care Team Providers Care Setter Machine Name Role Phone Unavailable Unavailable Unavailable Reason for Visit and Chief Complaint The Chief Complaint is: PATIENT IS HERE FOR LEFT KNEE PAIN FOR 2 DAYS AFTER A FALL. 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 Resolved Last Documented On 04/24/2015 5:23PM ; [facility] Note: Unchanged Knee Sprain 04/10/2015 Unknown ROGER GARCIA M.D. Resolved Last Documented On 04/24/2015 5:23PM ; [facility] Note: Unchanged Past Visits Onset Date Resolved Date Provider Condition Status Sinusitis Acute 10/23/2015 ROGER BYNUM M.D. Active Last Documented On 10/23/2015 2:31PM ; [facility] Note: Unchanged Viral Syndrome 10/23/2015 ROGER Nicholson M.D. Active Last Documented On 10/23/2015 2:31PM ; [facility] Note: Unchanged Abscess 12/05/2014 Unknown ROGER GARCIA M.D. Resolved Last Documented On 04/10/2015 11:16AM ; [facility] Note: Unchanged Subungual Hematoma 12/05/2014 Unknown ROGER GARCIA M.D. Resolved Last Documented On 04/10/2015 11:16AM ; [facility] Note: Unchanged Plan of Treatment - Follow-up visit as needed with an office visit. - Last Documented On 04/10/2015 11:17AM ; [facility] Referrals To Diagnosis Orthopedic MADISON WELCH MD SPRAIN OF KNE E & LEG NOS Note: Knee pain and left kne e effussion Last Documented On 5 8:35PM ; [facility] Instructions to patient Instructions for patient Last Documented On 5 11:16AM ; [facility] Education and Decision Aids were provided during visit for: Education and counseling Last Documented On 5 11:16AM ; [facility] Assessments Includes: Assessments from this encounter Findings - Cellulitis - Last Documented On 04/10/2015 11:17AM ; [facility] - Knee sprain /pain/swelling/effusion. left knee - Last Documented On 04/10/2015 11:17AM ; [facility] Instructions Includes: Instructions from this encounter Instructions to patient Instructions for patient Last Documented On 5 11:16AM ; [facility] Education and Decision Aids were provided during visit for: Education and counseling Last Documented On 5 11:16AM ; [facility] Medical Equipment - Implanted Devices Includes: Current Devices No Medical Equipment Recorded Medications Includes: Medications discussed during this encounter and other current Medications Discontinued / Stopped on this date ROGER GARCIA M.D. on 12/05/2014 Sulfamethoxazole-Trimethopri m 200-40 MG/5ML Suspension Provider: ROGER GARCIA M.D. Diagnosis: Cellulitis NOS Last Documented On 04/07/2015 10:09AM By MARTINA EAST MA ; [facility] New / Renewed during this visit ROGER GARCIA M.D. on 04/07/2015 Clindamycin HCl 300 MG Capsule Provider: ROGER GARCIA M.D. 10 day supply: 20 capsule, 0 refills Diagnosis: SPRAIN OF KNEE & LEG NOS 1 CAPSULE TWO TIMES A DAY [facility]acy: [email or web address] [address], [phone] - Last Documented On 04/24/2015 2:35PM By MARTINA EAST MA ; [facility] Current Medications (continue as prescribed) Amoxicillin 400 MG/5ML Suspension Reconstituted 10/23/2015 Provider: ROGER GARCIA M.D. Diagnosis: Acute maxillary sinusitis, unspecified 2 tsp bid Last Documented On 10/23/2015 4:40PM By ROGER GARCIA MD ; [facility] Past Medications on file ZyrTEC Allergy 10 MG Tablet 07/19/2015 - 08/18/2015 Provider: RALF MIRANDA [facility] Diagnosis: Acute nasopharyn gitis [common cold] One tablet daily Last Documented On 5 1:59PM By RALF MIRANDA [facility] ; [facility] Malathion 0.5% EX LOTN 12/15/2014 - 12/29/2014 Provide r: ROGER GARCIA M.D. Diagnosis: use as directed on package Last Documented On 5 9:11AM By SARIA CAMERON LPN ; [facility] Fluconazole 150 MG OR TABS 12/04/2012 - 12/06/2012 Pro vider: ROGER GARCIA M.D. Diagnosis: 1/2 tablet today then repeat after 1 week Last Documented On 12/04/2012 4:07PM By ROGER GARCIA MD ; [facility] Medications Administered Includes: Administered Medications from this encounter No Administered Medications Recorded Vital Signs Includes: Vital Signs from this encounter Vital Name 04/07/2015 10:09A Blood Pressure Sitting (mmHg) 114/68 Pulse Rate-Sitting (bpm) 88 Temp-Tympanic (F) 98.1 Height (in) 57.25 Weight (lb) 82 Body Mass Index (kg/m2) 17.6 BMI Percentile (percentile) 46 Body Surface Area (m2) 1.2 Last Documented: On 04/07/2015 10:15A M ; [facility] Results Includes: Results discussed during this encounter No Results Recorded For Specified Dates History of Present Illness Includes: History of Present Illness from this encounter MECHELLE LIU is a 9 year old female. Source of patient information was mother Source of patient information was patient ? Medication list reviewed - Patient accompanied by mother - Not feeling fine - No fever - Normal appetite - Appetite not decreased - No diarrhea - Muscle spasms - Pain localized to one or more joints - Joint swelling localized to one or more joints Social History Description Last Updated Smoking status : Never smoker 04/10/2015 Last Documented On 5 2:08PM ; [facility] Procedures and Surgical History Includes: Procedures from this encounter Procedures Code Diagnosis Performing Provider Service L ocation Service Date education and instructions Last Documented On 5 11:16AM ; [facility] the options include close observation Last Documented On 5 11:13AM ; [facility] Will go ahead order an xray of the left knee and refer patient to Dr Welch Last Documented On 5 11:13AM ; [facility] Pt to use prescription as ordered. Purpo se of and use of medication discussed.~ Last Documented On 5 11:13AM ; [facility] Pt to use OTC fever/pain product as need ed per product instruction.~ Last Documented On 5 11:13AM ; [facility] plan of care reviewed and agreed to mgt and care plan Last Documented On 5 11:13AM ; [facility] Clinical summary provided to patient Last Documented On 5 11:16AM ; [facility] Medical History Includes: Medical History addressed during this encounter No Medical History Recorded Family History Includes: Family History addressed during this encounter Description Last Updated Family history of diabetes mellitus 11/2014 Last Documented On 5 11:16AM ; [facility] Cancer 04/03/2011 Last Documented On 5 11:16AM ; [facility] Family history of arthritis 04/03/2011 Last Documented On 5 11:16AM ; [facility] Family history of blood pressure was hig h 04/03/2011 Last Documented On 5 11:16AM ; [facility] Family history of stroke syndrome 2010 Last Documented On 5 11:16AM ; [facility] Review of Systems Includes: Review of Systems from this encounter Systemic: No fever. Head: No headache and headache not associated with head congestion. No sinus pressure. Otolaryngeal: No earache, no nasal discharge, no postnasal drip, no nasal passage blockage (stuffiness), and no sore throat. Pulmonary: Not feeling congested in the chest, no cough, and not coughing up sputum. Gastrointestinal: No nausea and no vomiting. Musculoskeletal: Musculoskeletal symptoms. Skin: Skin symptoms. Mental Status Includes: Mental Status from this encounter No Mental Status Recorded Functional Status Includes: Functional Status from this encounter No Functional Status Recorded Physical Exam Includes: Physical Exam from this encounter Allergies Includes: Active Allergies No Known Allergies Encounters Encounter Provider Location Date Check-In Time Check-Out Time Diagnosis PROBLEM VISIT ROGER GARCIA M.D. [facility] 04/07/20 15 10:05AM 10:25AM Knee Sprain,Cellu litis Clinical Notes Includes: Clinical Notes from this encounter No Clinical Notes Recorded
--- OUTSIDE RECORDS SUMMARY | 2024-12-10 06:18 | XMS_ITS ---
Author Organization [facility] Address [address] [place] [address] Phone Care Team Providers Care Cover Stripper Name Role Phone Unavailable Unavailable Unavailable Problems Includes: Active, inactive, and resolved Problems All Visits Onset Date Resolved Date Provider Condition S tatus Sinusitis Acute 10/23/2015 ROGER BYNUM M.D. Active Last Documented On 10/23/2015 2:31PM ; [facility] Note: Unchanged Viral Syndrome 10/23/2015 ROGER Nicholson M.D. Active Last Documented On 10/23/2015 2:31PM ; [facility] Note: Unchanged Dermatitis 04/24/2015 ROGER GARCIA M.D. Inactive Last Documented On 10/23/2015 2:31PM ; [facility] Note: Unchanged Routine History and Physical Well Child (6 - 12 Yrs) 04/24/2015 ORGER GARCIA M.D. Inactive Last Documented On 10/23/2015 2:31PM ; [facility] Note: Unchanged Cellulitis 04/10/2015 Unknown ROGER GARCIA M.D. Resolved Last Documented On 04/24/2015 5:23PM ; [facility] Note: Unchanged Knee Sprain 04/10/2015 Unknown ROGER GARCIA M.D. Resolved Last Documented On 04/24/2015 5:23PM ; [facility] Note: Unchanged Abscess 12/05/2014 Unknown ROGER GARCIA M.D. Resolved Last Documented On 04/10/2015 11:16AM ; [facility] Note: Unchanged Subungual Hematoma 12/05/2014 Unknown ROGER GARCIA M.D. Resolved Last Documented On 04/10/2015 11:16AM ; [facility] Note: Unchanged Infectious Disease Viral Infection 02/18/2014 Unknown ROGER GARCIA M.D. Resolved Last Documented On 12/05/2014 3:22PM ; [facility] Note: Unchanged Sinusitis Acute 02/18/2014 Unknown ROGER Reynolds.Dixie Resolved Last Documented On 12/05/2014 3:22PM ; [facility] Note: Unchanged ACUTE URI NOS 04/03/2011 Unknown ROGER GARCIA M.D. Resolved Last Documented On 4 9:00AM ; [facility] OTITIS MEDIA NOS 04/03/2011 Unknown ROGER Reynolds.Dixie Resolved Last Documented On 4 9:00AM ; [facility] Plan of Treatment Findings Encounter Date Ordered follow-up visit as n eeded with an office visit. SAME DAY SICK VISIT with ROGER GARCIA M.D. 10/23/2015 Last Documented On 6 2:32PM ; [facility] Ordered patient to call if p roblem develops SAME DAY SICK VISIT with ROGER GARCIA M.D. 10/23/2015 Last Documented On 6 2:32PM ; [facility] Ordered return to the clinic if condition worsens or new symptoms arise SAME DAY SICK VISIT with ROGER GARCIA M.D. 10/23/2015 Last Documented On 6 2:32PM ; [facility] Ordered patient will call fo r appointment as needed SAME DAY SICK VISIT with RALF MIRANDA [facility]- 07/19/2015 Last Documented On 5 2:07PM ; [facility] Ordered return to the clinic if condition worsens or new symptoms arise SAME DAY SICK VISIT with RALF MIRANDA [facility]- 07/19/2015 Last Documented On 5 2:07PM ; [facility] Ordered patient will call fo r appointment as needed PROBLEM VISIT with RALF MIRANDA [facility] [employer] [facility] 06/09/2015 Last Documented On 5 1:47PM ; [facility] Ordered return to the clinic if condition worsens or new symptoms arise PROBLEM VISIT with RALF MIRANDA PMHNP[facility] [employer] [facility] 06/09/2015 Last Documented On 5 1:47PM ; [facility] Ordered follow-up visit as n eeded with an office visit. PROBLEM VISIT with ROGER GARCIA M.D. 04/07/2015 Last Documented On 5 11:17AM ; [facility] Ordered follow-up visit as n eeded with an office visit. SAME DAY SICK VISIT with ROGER GARCIA M.D. 02/17/2014 Last Documented On 4 9:01AM ; [facility] Referrals To Diagnosis Orthopedic MADISON WELCH MD SPRAIN OF KNE E & LEG NOS Note: Knee pain and left kne e effussion Last Documented On 5 8:35PM ; [facility] Instructions to patient Instructions for patient Last Documented On 6 2:32PM ; [facility] Instructions for patient Last Documented On 5 1:49PM ; [facility] Instructions for patient Last Documented On 5 5:29PM ; [facility] Maintain a healthy diet Last Documented On 5 5:21PM ; [facility] No Special Instructions or D evices Last Documented On 5 5:21PM ; [facility] Instructions for patient Last Documented On 5 11:16AM ; [facility] Education and Decision Aids were provided during visit for: Patient education about anti biotics: need to finish even if feeling better Last Documented On 6 2:31PM ; [facility] Education and counseling Last Documented On 5 5:29PM ; [facility] Discussed safety practices Last Documented On 5 5:21PM ; [facility] Discussed nutritional needs Last Documented On 5 5:21PM ; [facility] Discussed education and care er Last Documented On 5 5:21PM ; [facility] Discussed activities Last Documented On 5 5:21PM ; [facility] Discussed concerns Last Documented On 5 5:21PM ; [facility] Education and counseling Last Documented On 5 11:16AM ; [facility] Assessments Includes: Assessments for all patient encounters Findings Encounter Date Acute sinusitis SAME DAY SICK VISIT with ROGER GARCIA M.D. 10/23/2015 Last Documented On 6 2:32PM ; [facility] Viral syndrome SAME DAY SICK VISIT with ROGER GARCIA M.D. 10/23/2015 Last Documented On 6 2:32PM ; [facility] Common cold SAME DAY SICK VISIT with DANIEL MIRANDA [facility] 07/19/2015 Last Documented On 5 2:07PM ; [facility] Constipation PROBLEM VISIT with RALF IBANEZ PATY [facility] 06/09/2015 Last Documented On 5 1:47PM ; [facility] Dysuria PROBLEM VISIT with RALF Branham MARCELLE NEWMAN [facility] 06/09/2015 Last Documented On 5 1:47PM ; [facility] Patient is approved for part icipation in School, Physical Education, and Sports for 1 year SCHOOL PHYSICAL with ROGER GARCIA M.D. 04/24/2015 Last Documented On 5 2:10PM ; [facility] Dermatitis SCHOOL PHYSICAL with ROGER MEANS M.D. 04/24/2015 Last Documented On 5 2:10PM ; [facility] Normal routine history and p hysical well-child (6 - 12) SCHOOL PHYSICAL with ROGER GARCIA M.D. 04/24/2015 Last Documented On 5 2:10PM ; [facility] Cellulitis PROBLEM VISIT with ROGER Nicholson M.D. 04/07/2015 Last Documented On 5 11:17AM ; [facility] Knee sprain /pain/swelling/effusion. lef t knee PROBLEM VISIT with ROGER GARCIA M.D. 04/07/2015 Last Documented On 5 11:17AM ; [facility] ABSCESS PROBLEM VISIT with ROGER Nicholson M.D. 12/05/2014 Last Documented On 5 3:23PM ; [facility] Subungual hematoma PROBLEM VISIT with ROGER GARCIA M.D. 12/05/2014 Last Documented On 5 3:23PM ; [facility] Acute sinusitis SAME DAY SICK VISIT with ROGER GARCIA M.D. 02/17/2014 Last Documented On 4 9:01AM ; [facility] Viral infection SAME DAY SICK VISIT with ROGER GARCIA M.D. 02/17/2014 Last Documented On 4 9:01AM ; [facility] Instructions Includes: Instructions for all patient encounters Instructions to patient Instructions for patient Last Documented On 6 2:32PM ; [facility] Instructions for patient Last Documented On 5 1:49PM ; [facility] Instructions for patient Last Documented On 5 5:29PM ; [facility] Maintain a healthy diet Last Documented On 5 5:21PM ; [facility] No Special Instructions or D evices Last Documented On 5 5:21PM ; [facility] Instructions for patient Last Documented On 5 11:16AM ; [facility] Education and Decision Aids were provided during visit for: Patient education about anti biotics: need to finish even if feeling better Last Documented On 6 2:31PM ; [facility] Education and counseling Last Documented On 5 5:29PM ; [facility] Discussed safety practices Last Documented On 5 5:21PM ; [facility] Discussed nutritional needs Last Documented On 5 5:21PM ; [facility] Discussed education and care er Last Documented On 5 5:21PM ; [facility] Discussed activities Last Documented On 5 5:21PM ; [facility] Discussed concerns Last Documented On 5 5:21PM ; [facility] Education and counseling Last Documented On 5 11:16AM ; [facility] Medical Equipment - Implanted Devices Includes: Current and historical Devices No Medical Equipment Recorded Medications Includes: Current and historical Medications Current Medications (continue as prescribed) Amoxicillin 400 MG/5ML Suspension Reconstituted 10/23/2015 Provider: ROGER GARCIA M.D. Diagnosis: Acute maxillary sinusitis, unspecified 2 tsp bid Last Documented On 10/23/2015 4:40PM By ROGER GARCIA MD ; [facility] Past Medications on file ZyrTEC Allergy 10 MG Tablet 07/19/2015 - 08/18/2015 [facility] Diagnosis: Acute nasopharyn gitis [common cold] One tablet daily Last Documented On 5 1:59PM By RALF MIRANDA [facility] ; [facility] Triamcinolone Acetonide 0.5 % Cream 04/24/2015 - 06/09/2015 Provider: ROGER Cole Diagnosis: DERMATITIS NOS Apply twice a day Last Documented On 5 1:17PM By SARAI CAMERON LPN ; [facility] Clindamycin HCl 300 MG Capsule 04/07/2015 - 04/24/2015 Provider: ROGER GARCIA M.D. Diagnosis: SPRAIN OF KNEE & LEG NOS 1 CAPSULE TWO TIMES A DAY Last Documented On 04/24/2015 2:35PM By MARTINA EAST MA ; [facility] Malathion 0.5% EX LOTN 12/15/2014 - 12/29/2014 Provide r: ROGER GARCIA M.D. Diagnosis: use as directed on package Last Documented On 5 9:11AM By SARAI CAMREON LPN ; [facility] Sulfamethoxazole-Trimethopri m 200-40 MG/5ML Suspension 12/05/2014 - 04/07/2015 Provider: ROGER GARCIA M.D. Diagnosis: Cellulitis NOS 2 tsp bid Last Documented On 04/07/2015 10:09AM By MARTINA EAST MA ; [facility] Amoxicillin 400 MG/5ML OR SUSR 02/17/2014 - 12/05/2014 Provider: ROGER GARCIA M.D. Diagnosis: ACUTE SINUSITIS NOS 2 tsp bid Last Documented On 12/05/2014 3:22PM By ROGER GARCIA MD ; [facility] Fluconazole 150 MG OR TABS 12/04/2012 - 12/06/2012 Pro vider: ROGER GARCIA M.D. Diagnosis: 1/2 tablet today then repeat after 1 week Last Documented On 12/04/2012 4:07PM By ROGER GARCIA MD ; [facility] Medications Administered Includes: Administered Medications in patient's chart No Administered Medications Recorded Results Includes: Results from 12/11/2023 through 12/10/2024 No Results Recorded For Specified Dates History of Present Illness History of Present Illness not supported for this document type No History of Present Illness Recorded Social History Description Last Updated Currently in school 10/23/2015 Last Documented On 6 2:32PM ; [facility] No recent decrease in exercise activity 07/19/2015 Last Documented On 5 2:07PM ; [facility] Smoking status : Never smoker 04/26/2015 Last Documented On 5 2:10PM ; [facility] Nutritional quality of diet 04/24/2015 Last Documented On 5 2:10PM ; [facility] Nutritious and satisfying diet 5 Last Documented On 5 2:10PM ; [facility] The racial background was unknown ethnic minority 04/24/2015 Last Documented On 5 2:10PM ; [facility] No tobacco use 04/24/2015 Last Documented On 5 2:10PM ; [facility] Not using alcohol 04/24/2015 Last Documented On 5 2:10PM ; [facility] Not using drugs 04/24/2015 Last Documented On 5 2:10PM ; [facility] Child cared for at home 02/18/2014 Last Documented On 4 9:01AM ; [facility] Medical History Includes: Medical History in patient's chart Description Last Updated No recent change in medical history 05/23 Last Documented On 5 1:47PM ; [facility] No other medical history reported Signs of Insulin Resistance 04/24/2015 Last Documented On 5 2:10PM ; [facility] A PPD was negative 04/24/2015 Last Documented On 5 2:10PM ; [facility] Blood pressure was not high 04/24/2015 Last Documented On 5 2:10PM ; [facility] No cardiac problems 04/24/2015 Last Documented On 5 2:10PM ; [facility] No exposure to tuberculosis 04/24/2015 Last Documented On 5 2:10PM ; [facility] No hearing problems 04/24/2015 Last Documented On 5 2:10PM ; [facility] No heart murmur 04/24/2015 Last Documented On 5 2:10PM ; [facility] No history of asthma 04/24/2015 Last Documented On 5 2:10PM ; [facility] No history of concussion 04/24/2015 Last Documented On 5 2:10PM ; [facility] No history of delayed milestones 015 Last Documented On 5 2:10PM ; [facility] No history of diabetes mellitus 04/24/20 15 Last Documented On 5 2:10PM ; [facility] No history of hematologic disorder 04/24 Last Documented On 5 2:10PM ; [facility] No history of sickle cell abnormality Last Documented On 5 2:10PM ; [facility] No loss of function of one of paired org ans 04/24/2015 Last Documented On 5 2:10PM ; [facility] No orthopedic problems 04/24/2015 Last Documented On 5 2:10PM ; [facility] No previous hospitalizations 04/24/2015 Last Documented On 5 2:10PM ; [facility] No recent severe illness or injury 04/24 Last Documented On 5 2:10PM ; [facility] No Surgery 04/24/2015 Last Documented On 5 2:10PM ; [facility] No trauma to the head 04/24/2015 Last Documented On 5 2:10PM ; [facility] Not born with congenital abnormalities 0 04/24/2015 Last Documented On 5 2:10PM ; [facility] Not carrier of hemophilia A 04/24/2015 Last Documented On 5 2:10PM ; [facility] Taking OTC pain medication / fever. Matt Solis 12/05/2014 Last Documented On 5 3:23PM ; [facility] Born by vaginal delivery 04/03/2011 Last Documented On 1 2:02PM ; [facility] Bottle-fed SIMILAC WITH IRON 04/03/2011 Last Documented On 1 2:02PM ; [facility] Gestational age: 37 04/03/2011 Last Documented On 1 2:02PM ; [facility] History of length at 19:1/2 in Last Documented On 1 2:02PM ; [facility] Patient's weight 6:3 lbs 1 Last Documented On 1 2:02PM ; [facility] Family History Includes: Family History in patient's chart Description Last Updated Family history unchanged 06/09/2015 Last Documented On 5 1:47PM ; [facility] No family history of diabetes mellitus 0 04/24/2015 Last Documented On 5 2:10PM ; [facility] No family history of sudden early deaths 04/24/2015 Last Documented On 5 2:10PM ; [facility] Cancer 04/03/2011 Last Documented On 1 2:02PM ; [facility] Family history of arthritis 04/03/2011 Last Documented On 1 2:02PM ; [facility] Family history of blood pressure was hig h 04/03/2011 Last Documented On 1 2:02PM ; [facility] Family history of stroke syndrome 2010 Last Documented On 1 2:02PM ; [facility] Review of Systems Review of Systems not supported for this document type No Review of Systems Recorded Mental Status Description Oriented to time, place, and person Functional Status No Functional Status Recorded Physical Exam Physical Exam not supported for this document type No Physical Exam Recorded Immunizations Includes: Immunizations in patient's chart Vaccine Dose # Date Site Reaction(s) Status Source DTaP 1 2003 Complete (Reported) P atient Last Documented On 1 2:01PM ; [facility] DTaP 2 2003 Complete (Reported) P atient Last Documented On 1 2:01PM ; [facility] DTaP 3 05/31/2004 Complete (Reported) P atient Last Documented On 1 2:01PM ; [facility] DTaP 4 04/13/2008 Complete (Reported) P atient Last Documented On 1 2:01PM ; [facility] DTaP 5 12/07/2008 Complete (Reported) P atient Last Documented On 1 2:01PM ; [facility] Hep A, ped/adol, (HAVRIX-PEDS)-2 dose 1 04/24/2015 Right Arm Complet e (Administered) [facility] Last Documented On 5 4:18PM ; [facility] Hep B (Engerix-B/Recombivax HB) Ped/Adult 3 dose 1 2003 Complete (Reported) Pa tient Last Documented On 1 2:01PM ; [facility] Hep B (Engerix-B/Recombivax HB) Ped/Adult 3 dose 2 2003 Complete (Reported) Pa tient Last Documented On 1 2:01PM ; [facility] Hep B (Engerix-B/Recombivax HB) Ped/Adult 3 dose 3 05/31/2004 Complete (Reported) Pa tient Last Documented On 1 2:01PM ; [facility] HIb-PRP-OMP (PedvaxHIB) 3 dose 1 2003 Complete (Reported) Patient Last Documented On 1 2:01PM ; [facility] HIb-PRP-OMP (PedvaxHIB) 3 dose 2 05/31/2004 Complete (Reported) Patient Last Documented On 1 2:01PM ; [facility] HPV, (quadrivalent) Gardasil 1 04/24/2015 Left Arm Complete (Administered) [facility] Last Documented On 5 4:18PM ; [facility] Meningococcal ACYW-135 (Menactra) 1 04/24/2015 Left Arm Complete (Administered) [facility] Last Documented On 5 4:18PM ; [facility] MMR 1 04/13/2008 Complete (Reported) P atient Last Documented On 1 2:01PM ; [facility] MMR 2 12/07/2008 Complete (Reported) P atient Last Documented On 1 2:01PM ; [facility] PCV 13 (Prevnar) 1 2003 Complete (Re ported) Patient Last Documented On 1 2:01PM ; [facility] PCV 13 (Prevnar) 2 2003 Complete (Re ported) Patient Last Documented On 1 2:01PM ; [facility] PCV 13 (Prevnar) 3 05/31/2004 Complete (Re ported) Patient Last Documented On 1 2:01PM ; [facility] Polio ,IPV (IPOL) 1 2003 Complete (R eported) Patient Last Documented On 1 2:01PM ; [facility] Polio ,IPV (IPOL) 2 2003 Complete (R eported) Patient Last Documented On 1 2:01PM ; [facility] Polio ,IPV (IPOL) 3 05/31/2004 Complete (R eported) Patient Last Documented On 1 2:01PM ; [facility] Polio ,IPV (IPOL) 4 12/07/2008 Complete (R eported) Patient Last Documented On 1 2:01PM ; [facility] Tdap (Boostrix) 1 04/24/2015 Right Arm Complete (A dministered) [facility] Last Documented On 5 4:18PM ; [facility] Varicella 1 04/13/2008 Complete (Reported) Patient Last Documented On 1 2:01PM ; [facility] Varicella (Chickenpox) 1 04/24/2015 Right Arm Complete (Administered) [facility] Last Documented On 5 4:18PM ; [facility] Allergies Includes: Active, inactive, and resolved Allergies No Known Allergies Clinical Notes Includes: Signed Clinical Notes starting from 10/11/2022 No Clinical Notes Recorded
--- OUTSIDE RECORDS SUMMARY | 2024-12-10 06:27 | XMS_ITS | Clinical Summary ---
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 Resolved Last Documented On 04/24/2015 5:23PM ; [facility] Note: Unchanged Past Visits Onset Date Resolved Date Provider Condition Status Sinusitis Acute 10/23/2015 ROGER BYNUM M.D. Active Last Documented On 10/23/2015 2:31PM ; [facility] Note: Unchanged Viral Syndrome 10/23/2015 ROGER Nicholson M.D. Active Last Documented On 10/23/2015 2:31PM ; [facility] Note: Unchanged Abscess 12/05/2014 Unknown ROGER GARCIA M.D. Resolved Last Documented On 04/10/2015 11:16AM ; [facility] Note: Unchanged Subungual Hematoma 12/05/2014 Unknown ROGER GARCIA M.D. Resolved Last Documented On 04/10/2015 11:16AM ; [facility] Note: Unchanged Plan of Treatment - Follow-up visit as needed with an office visit. - Last Documented On 04/10/2015 11:17AM ; [facility] Referrals To Diagnosis Orthopedic MADISON WELCH MD SPRAIN OF KNE E & LEG NOS Note: Knee pain and left kne e effussion Last Documented On 5 8:35PM ; [facility] Instructions to patient Instructions for patient Last Documented On 5 11:16AM ; [facility] Education and Decision Aids were provided during visit for: Education and counseling Last Documented On 5 11:16AM ; [facility] Assessments Includes: Assessments from this encounter Findings - Cellulitis - Last Documented On 04/10/2015 11:17AM ; [facility] - Knee sprain /pain/swelling/effusion. left knee - Last Documented On 04/10/2015 11:17AM ; [facility] Instructions Includes: Instructions from this encounter Instructions to patient Instructions for patient Last Documented On 5 11:16AM ; [facility] Education and Decision Aids were provided during visit for: Education and counseling Last Documented On 5 11:16AM ; [facility] Medical Equipment - Implanted Devices Includes: Current Devices No Medical Equipment Recorded Medications Includes: Medications discussed during this encounter and other current Medications Discontinued / Stopped on this date ROGER GARCIA M.D. on 12/05/2014 Sulfamethoxazole-Trimethopri m 200-40 MG/5ML Suspension Provider: ROGER GARCIA M.D. Diagnosis: Cellulitis NOS Last Documented On 04/07/2015 10:09AM By MARTINA EAST MA ; [facility] New / Renewed during this visit ROGER GARCIA M.D. on 04/07/2015 Clindamycin HCl 300 MG Capsule Provider: ROGER GARCIA M.D. 10 day supply: 20 capsule, 0 refills Diagnosis: SPRAIN OF KNEE & LEG NOS 1 CAPSULE TWO TIMES A DAY [facility]acy: [facility] [address], [phone] - Last Documented On 04/24/2015 2:35PM By MARTINA EAST MA ; [facility] Current Medications (continue as prescribed) Amoxicillin 400 MG/5ML Suspension Reconstituted 10/23/2015 Provider: ROGER GARCIA M.D. Diagnosis: Acute maxillary sinusitis, unspecified 2 tsp bid Last Documented On 10/23/2015 4:40PM By ROGER GARCIA MD ; [facility] Past Medications on file ZyrTEC Allergy 10 MG Tablet 07/19/2015 - 08/18/2015 Provider: RALF [facility]IR[facility] Diagnosis: Acute nasopharyn gitis [common cold] One tablet daily Last Documented On 5 1:59PM By RALF MIRANDA [facility] ; [facility] Malathion 0.5% EX LOTN 12/15/2014 - 12/29/2014 Provide r: ROGER GARCIA M.D. Diagnosis: use as directed on package Last Documented On 5 9:11AM By SARAI CAMERON LPN ; [facility] Fluconazole 150 MG OR TABS 12/04/2012 - 12/06/2012 Pro vider: ROGER GARCIA M.D. Diagnosis: 1/2 tablet today then repeat after 1 week Last Documented On 12/04/2012 4:07PM By ROGER GARCIA MD ; [facility] Medications Administered Includes: Administered Medications [...] Last Documented: On 04/07/2015 10:15A M ; [facility] Results Includes: Results discussed during this encounter No Results Recorded For Specified Dates History of Present Illness Includes: History of Present Illness from this encounter MECHELLE LUI is a 9 year old female. Source [...] instructions Last Documented On 5 11:16AM ; [facility] the options include close observation Last Documented On 5 11:13AM ; [facility] Will go ahead order an xray of the left knee and refer patient to Dr Welch Last Documented On 5 11:13AM ; [facility] Pt to use prescription as ordered. Purpo se of and use of medication discussed.~ Last Documented On 5 11:13AM ; [facility] Pt to use OTC fever/pain product as need ed per product instruction.~ Last Documented On 5 11:13AM ; [facility] plan of care reviewed and agreed to mgt and care plan Last Documented On 5 11:13AM ; [facility] Clinical summary provided to patient Last Documented On 5 11:16AM ; [facility] Medical History Includes: Medical History addressed during this encounter No Medical History Recorded Family History Includes: Family History addressed during this encounter Description Last Updated Family history of diabetes mellitus 11/2014 Last Documented On 5 11:16AM ; [facility] Cancer 04/03/2011 Last Documented On 5 11:16AM ; [facility] Family history of arthritis 04/03/2011 Last Documented On 5 11:16AM ; [facility] Family history of blood pressure was hig h 04/03/2011 Last Documented On 5 11:16AM ; [facility] Family history of stroke syndrome 2010 Last Documented On 5 11:16AM ; [facility] Review of Systems Includes: Review of Systems [...] Time Diagnosis PROBLEM VISIT ROGER GARCIA M.D. [facility] 04/07/20 15 10:05AM 10:25AM Knee Sprain,Cellu litis Clinical Notes Includes: Clinical Notes from this encounter No Clinical Notes Recorded
--- OUTSIDE RECORDS SUMMARY | 2024-12-10 06:27 | XMS_ITS | Clinical Summary ---
Author Organization [facility] Address [address] [place] [address] Phone Care Team Providers Care Siphon Operator Name Role Phone Unavailable Unavailable Unavailable Reason [...] Inactive Last Documented On 10/23/2015 2:31PM ; [facility] Note: Unchanged Routine History and Physical Well Child (6 - 12 Yrs) 04/24/2015 ROGER GARCIA M.D. Inactive Last Documented On 10/23/2015 2:31PM ; [facility] Note: Unchanged Past Visits Onset Date Resolved Date Provider Condition Status Sinusitis Acute 10/23/2015 ROGER BYNUM M.D. Active Last Documented On 10/23/2015 2:31PM ; [facility] Note: Unchanged Viral Syndrome 10/23/2015 ROGER Nicholson M.D. Active Last Documented On 10/23/2015 2:31PM ; [facility] Note: Unchanged Cellulitis 04/10/2015 Unknown ROGER GARCIA M.D. Resolved Last Documented On 04/24/2015 5:23PM ; [facility] Note: Unchanged Knee Sprain 04/10/2015 Unknown ROGER GARCIA M.D. Resolved Last Documented On 04/24/2015 5:23PM ; [facility] Note: Unchanged Plan of Treatment Instructions to patient Instructions for patient Last Documented On 5 5:29PM ; [facility] Maintain a healthy diet Last Documented On 5 5:21PM ; [facility] No Special Instructions or D evices Last Documented On 5 5:21PM ; [facility] Education and Decision Aids were provided during visit for: Education and counseling Last Documented On 5 5:29PM ; [facility] Discussed safety practices Last Documented On 5 5:21PM ; [facility] Discussed nutritional needs Last Documented On 5 5:21PM ; [facility] Discussed education and care er Last Documented On 5 5:21PM ; [facility] Discussed activities Last Documented On 5 5:21PM ; [facility] Discussed concerns Last Documented On 5 5:21PM ; [facility] Assessments Includes: Assessments from this encounter Findings - Normal routine history and physical well-child (6 - 12) - Last Documented On 04/28/2015 2:10PM ; [facility] - Dermatitis - Last Documented On 04/28/2015 2:10PM ; [facility] Patient is approved for participation in School, Physical Education, and Sports for 1 year. - Last Documented On 04/28/2015 2:10PM ; [facility] Instructions Includes: Instructions from this encounter Instructions to patient Instructions for patient Last Documented On 5 5:29PM ; [facility] Maintain a healthy diet Last Documented On 5 5:21PM ; [facility] No Special Instructions or D evices Last Documented On 5 5:21PM ; [facility] Education and Decision Aids were provided during visit for: Education and counseling Last Documented On 5 5:29PM ; [facility] Discussed safety practices Last Documented On 5 5:21PM ; [facility] Discussed nutritional needs Last Documented On 5 5:21PM ; [facility] Discussed education and care er Last Documented On 5 5:21PM ; [facility] Discussed activities Last Documented On 5 5:21PM ; [facility] Discussed concerns Last Documented On 5 5:21PM ; [facility] Medical Equipment - Implanted Devices Includes: Current Devices No Medical Equipment Recorded Medications Includes: Medications discussed during this encounter and other current Medications Discontinued / Stopped on this date ROGER GARCIA M.D. on 04/07/2015 Clindamycin HCl 300 MG Capsule Provider: ROGER GARCIA M.D. Diagnosis: SPRAIN OF KNEE & LEG NOS Last Documented On 04/24/2015 2:35PM By MARTINA EAST MA ; [facility] New / Renewed during this visit ROGER GARCIA M.D. on 04/24/2015 Triamcinolone Acetonide 0.5 % Cream Provider: ROGER GARCIA M.D. 7 day supply: 1 tube, 0 refills Diagnosis: DERMATITIS NOS Apply twice a day Pharmacy: [facility] [address], [phone] - Last Documented On 5 1:17PM By SARAI CAMERON LPN ; [facility] Current Medications (continue as prescribed) Amoxicillin 400 MG/5ML Suspension Reconstituted 10/23/2015 Provider: ROGER GARCIA M.D. Diagnosis: Acute maxillary sinusitis, unspecified 2 tsp bid Last Documented On 10/23/2015 4:40PM By ROGER GARCIA MD ; [facility] Past Medications on file ZyrTEC Allergy 10 MG Tablet 07/19/2015 - 08/18/2015 Provider: RALF MIRANDA [facility]- Diagnosis: Acute nasopharyn gitis [common cold] One tablet daily Last Documented On 5 1:59PM By RALF MIRANDA [facility] ; [facility] Malathion 0.5% EX LOTN 12/15/2014 - 12/29/2014 Provide r: ROGER GARCIA M.D. Diagnosis: use as directed on package Last Documented On 5 9:11AM By SARAI CAMERON LPN ; [facility] Fluconazole 150 MG OR TABS 12/04/2012 - 12/06/2012 Pro vider: ROGER GARCIA M.D. Diagnosis: 1/2 tablet today then repeat after 1 week Last Documented On 12/04/2012 4:07PM By ROGER GARCIA MD ; [facility] Medications Administered Includes: Administered Medications from this encounter No Administered Medications Recorded Vital Signs Includes: Vital Signs from this encounter Vital Name 04/24/2015 02:32P Blood Pressure Sitting (mmHg) 100/62 Temp-Tympanic (F) 98.2 Height (in) 57.5 Weight (lb) 87 Body Mass Index (kg/m2) 18.5 BMI Percentile (percentile) 57 Body Surface Area (m2) 1.3 Last Documented: On 04/24/2015 2:36PM ; [facility] Results Includes: Results discussed during this encounter Urinalysis Manual Lab Entry Ordered by ROGER GARCIA M.D. on 2014 Collected: Reported: 04/24/2015 07:58 Last Documented On 5 7:58AM ; [facility] Reviewed on 04/26/2015; All test results are final unless otherwise noted. color YELLOW (Straw-yellow) N (Normal) Last Documented On 5 7:58AM ; [facility] clarity CLEAR (clear) N (Normal) Last Documented On 5 7:58AM ; [facility] Glucose NEG (70-150mg/dL) N (Normal) Last Documented On 5 7:58AM ; [facility] Bilirubin NEG N (Normal) Last Documented On 5 7:58AM ; [facility] Ketone NEG N (Normal) Last Documented On 5 7:58AM ; [facility] SP [place] 1.030 (1.003-1.040) N (Normal) Last Documented On 5 7:58AM ; [facility] pH 5.0 (5.00-9.00) N (Normal) Last Documented On 5 7:58AM ; [facility] Protein NEG N (Normal) Last Documented On 5 7:58AM ; [facility] Urobilinogen 0.2 (0.2-1.0 EU/dL) N (Normal) Last Documented On 5 7:58AM ; [facility] Nitrate NEG N (Normal) Last Documented On 5 7:58AM ; [facility] Blood NEG N (Normal) Last Documented On 5 7:58AM ; [facility] Leukocyte NEG N (Normal) Last Documented On 5 7:58AM ; [facility] History of Present Illness Includes: History of [...] 04/26/2015 Last Documented On 5 2:10PM ; [facility] Nutritional quality of diet 04/24/2015 Last Documented On 5 2:10PM ; [facility] Nutritious and satisfying diet 5 Last Documented On 5 2:10PM ; [facility] The racial background was unknown ethnic minority 04/24/2015 Last Documented On 5 2:10PM ; [facility] No tobacco use 04/24/2015 Last Documented On 5 2:10PM ; [facility] Not using alcohol 04/24/2015 Last Documented On 5 2:10PM ; [facility] Not using drugs 04/24/2015 Last Documented On 5 2:10PM ; [facility] Procedures and Surgical History Includes: Procedures from this encounter Procedures Code Diagnosis Performing Provider Service L ocation Service Date diet Last Documented On 5 5:21PM ; [facility] education and instructions Last Documented On 5 5:29PM ; [facility] physician's services completed State [facility] sical Form Last Documented On 5 5:21PM ; [facility] Child allowed to participate in Sports Last Documented On 5 5:21PM ; [facility] Child allowed to participate in P.E Last Documented On 5 5:21PM ; [facility] plan of care reviewed and agreed to prev entive care Last Documented On 5 5:21PM ; [facility] SCHOOL/SPORT PHYSICAL Last Documented On 5 5:21PM ; [facility] Mental Health: There is no i nformation the school should know about this student Last Documented On 5 5:21PM ; [facility] No [facility] to child's health condition Last Documented On 5 5:21PM ; [facility] Discussed Healthy Eating Last Documented On 5 5:21PM ; [facility] Discussed Exercise Last Documented On 5 5:21PM ; [facility] Clinical summary provided to patient Last Documented On 5 5:29PM ; [facility] Medical History Includes: Medical History addressed during this encounter Description Last Updated No other medical history reported Signs of Insulin Resistance 04/24/2015 Last Documented On 5 2:10PM ; [facility] A PPD was negative 04/24/2015 Last Documented On 5 2:10PM ; [facility] Blood pressure was not high 04/24/2015 Last Documented On 5 2:10PM ; [facility] No cardiac problems 04/24/2015 Last Documented On 5 2:10PM ; [facility] No exposure to tuberculosis 04/24/2015 Last Documented On 5 2:10PM ; [facility] No hearing problems 04/24/2015 Last Documented On 5 2:10PM ; [facility] No heart murmur 04/24/2015 Last Documented On 5 2:10PM ; [facility] No history of asthma 04/24/2015 Last Documented On 5 2:10PM ; [facility] No history of concussion 04/24/2015 Last Documented On 5 2:10PM ; [facility] No history of delayed milestones 015 Last Documented On 5 2:10PM ; [facility] No history of diabetes mellitus 04/24/20 15 Last Documented On 5 2:10PM ; [facility] No history of hematologic disorder 04/24 Last Documented On 5 2:10PM ; [facility] No history of sickle cell abnormality Last Documented On 5 2:10PM ; [facility] No loss of function of one of paired org ans 04/24/2015 Last Documented On 5 2:10PM ; [facility] No orthopedic problems 04/24/2015 Last Documented On 5 2:10PM ; [facility] No previous hospitalizations 04/24/2015 Last Documented On 5 2:10PM ; [facility] No recent severe illness or injury 04/24 Last Documented On 5 2:10PM ; [facility] No Surgery 04/24/2015 Last Documented On 5 2:10PM ; [facility] No trauma to the head 04/24/2015 Last Documented On 5 2:10PM ; [facility] Not born with congenital abnormalities 0 04/24/2015 Last Documented On 5 2:10PM ; [facility] Not carrier of hemophilia A 04/24/2015 Last Documented On 5 2:10PM ; [facility] Family History Includes: Family History addressed during this encounter Description Last Updated Family history of diabetes mellitus 11/2014 Last Documented On 5 5:23PM ; [facility] No family history of diabetes mellitus 0 04/24/2015 Last Documented On 5 2:10PM ; [facility] No family history of sudden early deaths 04/24/2015 Last Documented On 5 2:10PM ; [facility] Cancer 04/03/2011 Last Documented On 5 5:23PM ; [facility] Family history of arthritis 04/03/2011 Last Documented On 5 5:23PM ; [facility] Family history of blood pressure was hig h 04/03/2011 Last Documented On 5 5:23PM ; [facility] Family history of stroke syndrome 2010 Last Documented On 5 5:23PM ; [facility] Review of Systems Includes: Review of [...] dose 1 04/24/2015 Right Arm Complete (Administered) [facility] Last Documented On 5 4:18PM ; [facility] HPV, (quadrivalent) Gardasil 1 04/24/2015 Left Arm Complete (Administered) [facility] Last Documented On 5 4:18PM ; [facility] Meningococcal ACYW-135 (Menactra) 1 04/24/2015 Left Arm Complete (Administered) [facility] Last Documented On 5 4:18PM ; [facility] Tdap (Boostrix) 1 04/24/2015 Right Arm Complete (A dministered) [facility] Last Documented On 5 4:18PM ; [facility] Varicella (Chickenpox) 1 04/24/2015 Right Arm Complete (Administered) [facility] Last Documented On 5 4:18PM ; [facility] Allergies Includes: Active Allergies No Known Allergies Encounters Encounter Provider Location Date Check-In Time Check-Out Time Diagnosis [facility] ROGER GARCIA M.D. [facility] 04/24/20 15 2:17PM 3:11PM Dermatitis,A ssessment [use For S.o.a.p. Note Free Text],Routin e History and Physical Well Child (6 - 12 Yrs) Clinical Notes Includes: Clinical Notes from this encounter No Clinical Notes Recorded
--- OUTSIDE RECORDS SUMMARY | 2024-12-10 06:27 | XMS_ITS ---
Author Organization [facility] Address [address] [place] [address] Phone Care Team Providers Care Continuity Manager Name Role Phone Unavailable Unavailable Unavailable Problems Includes: Active, inactive, and resolved Problems All Visits Onset Date Resolved Date Provider Condition S tatus Sinusitis Acute 10/23/2015 ROGER BYNUM M.D. Active Last Documented On 10/23/2015 2:31PM ; [facility] Note: Unchanged Viral Syndrome 10/23/2015 ROGER Nicholson M.D. Active Last Documented On 10/23/2015 2:31PM ; [facility] Note: Unchanged Dermatitis 04/24/2015 ROGER GARCIA M.D. Inactive Last Documented On 10/23/2015 2:31PM ; [facility] Note: Unchanged Routine History and Physical Well Child (6 - 12 Yrs) 04/24/2015 ROGER GARCIA M.D. Inactive Last Documented On 10/23/2015 2:31PM ; [facility] Note: Unchanged Cellulitis 04/10/2015 Unknown ROGER GARCIA M.D. Resolved Last Documented On 04/24/2015 5:23PM ; [facility] Note: Unchanged Knee Sprain 04/10/2015 Unknown ROGER GARCIA M.D. Resolved Last Documented On 04/24/2015 5:23PM ; [facility] Note: Unchanged Abscess 12/05/2014 Unknown ROGER GARCIA M.D. Resolved Last Documented On 04/10/2015 11:16AM ; [facility] Note: Unchanged Subungual Hematoma 12/05/2014 Unknown ROGER GARCIA M.D. Resolved Last Documented On 04/10/2015 11:16AM ; [facility] Note: Unchanged Infectious Disease Viral Infection 02/18/2014 Unknown ROGER GARCIA M.D. Resolved Last Documented On 12/05/2014 3:22PM ; [facility] Note: Unchanged Sinusitis Acute 02/18/2014 Unknown ROGER Reynolds.Dixie Resolved Last Documented On 12/05/2014 3:22PM ; [facility] Note: Unchanged ACUTE URI NOS 04/03/2011 Unknown ROGER GARCIA M.D. Resolved Last Documented On 4 9:00AM ; [facility] OTITIS MEDIA NOS 04/03/2011 Unknown ROGER Reynolds.Dixie Resolved Last Documented On 4 9:00AM ; [facility] Plan of Treatment Findings Encounter Date Ordered follow-up visit as n eeded with an office visit. SAME DAY SICK VISIT with ROGER GARCIA M.D. 10/23/2015 Last Documented On 6 2:32PM ; [facility] Ordered patient to call if p roblem develops SAME DAY SICK VISIT with ROGER GARCIA M.D. 10/23/2015 Last Documented On 6 2:32PM ; [facility] Ordered return to the clinic if condition worsens or new symptoms arise SAME DAY SICK VISIT with ROGER GARCIA M.D. 10/23/2015 Last Documented On 6 2:32PM ; [facility] Ordered patient will call fo r appointment as needed SAME DAY SICK VISIT with RALF MIRANDA [facility]- 07/19/2015 Last Documented On 5 2:07PM ; [facility] Ordered return to the clinic if condition worsens or new symptoms arise SAME DAY SICK VISIT with RALF MIRANDA [facility]- 07/19/2015 Last Documented On 5 2:07PM ; [facility] Ordered patient will call fo r appointment as needed PROBLEM VISIT with RALF MIRANDA HNP-BC TRAVELING OPERATOR-BC 06/09/2015 Last Documented On 5 1:47PM ; [facility] Ordered return to the clinic if condition worsens or new symptoms arise PROBLEM VISIT with RALF MIRANDA PMHNP-BC TRAVELING OPERATOR-BC 06/09/2015 Last Documented On 5 1:47PM ; [facility] Ordered follow-up visit as n eeded with an office visit. PROBLEM VISIT with ROGER GARCIA M.D. 04/07/2015 Last Documented On 5 11:17AM ; [facility] Ordered follow-up visit as n eeded with an office visit. SAME DAY SICK VISIT with ROGER GARCIA M.D. 02/17/2014 Last Documented On 4 9:01AM ; [facility] Referrals To Diagnosis Orthopedic MADISON WELCH MD SPRAIN OF KNE E & LEG NOS Note: Knee pain and left kne e effussion Last Documented On 5 8:35PM ; [facility] Instructions to patient Instructions for patient Last Documented On 6 2:32PM ; [facility] Instructions for patient Last Documented On 5 1:49PM ; [facility] Instructions for patient Last Documented On 5 5:29PM ; [facility] Maintain a healthy diet Last Documented On 5 5:21PM ; [facility] No Special Instructions or D evices Last Documented On 5 5:21PM ; [facility] Instructions for patient Last Documented On 5 11:16AM ; [facility] Education and Decision Aids were provided during visit for: Patient education about anti biotics: need to finish even if feeling better Last Documented On 6 2:31PM ; [facility] Education and counseling Last Documented On 5 5:29PM ; [facility] Discussed safety practices Last Documented On 5 5:21PM ; [facility] Discussed nutritional needs Last Documented On 5 5:21PM ; [facility] Discussed education and care er Last Documented On 5 5:21PM ; [facility] Discussed activities Last Documented On 5 5:21PM ; [facility] Discussed concerns Last Documented On 5 5:21PM ; [facility] Education and counseling Last Documented On 5 11:16AM ; [facility] Assessments Includes: Assessments for all patient encounters Findings Encounter Date Acute sinusitis SAME DAY SICK VISIT with ROGER GARCIA M.D. 10/23/2015 Last Documented On 6 2:32PM ; [facility] Viral syndrome SAME DAY SICK VISIT with ROGER GARCIA M.D. 10/23/2015 Last Documented On 6 2:32PM ; [facility] Common cold SAME DAY SICK VISIT with DANIEL MIRANDA [facility] 07/19/2015 Last Documented On 5 2:07PM ; [facility] Constipation PROBLEM VISIT with RALF IBANEZ PATY [facility] 06/09/2015 Last Documented On 5 1:47PM ; [facility] Dysuria PROBLEM VISIT with RALF Branham MARCELLE NEWMAN [facility] 06/09/2015 Last Documented On 5 1:47PM ; [facility] Patient is approved for part icipation in School, Physical Education, and Sports for 1 year SCHOOL PHYSICAL with ROGER GARCIA M.D. 04/24/2015 Last Documented On 5 2:10PM ; [facility] Dermatitis SCHOOL PHYSICAL with ROGER MEANS M.D. 04/24/2015 Last Documented On 5 2:10PM ; [facility] Normal routine history and p hysical well-child (6 - 12) SCHOOL PHYSICAL with ROGER GARCIA M.D. 04/24/2015 Last Documented On 5 2:10PM ; [facility] Cellulitis PROBLEM VISIT with ROGER Nicholson M.D. 04/07/2015 Last Documented On 5 11:17AM ; [facility] Knee sprain /pain/swelling/effusion. lef t knee PROBLEM VISIT with ROGER GARCIA M.D. 04/07/2015 Last Documented On 5 11:17AM ; [facility] ABSCESS PROBLEM VISIT with ROGER Nicholson M.D. 12/05/2014 Last Documented On 5 3:23PM ; [facility] Subungual hematoma PROBLEM VISIT with ROGER GARCIA M.D. 12/05/2014 Last Documented On 5 3:23PM ; [facility] Acute sinusitis SAME DAY SICK VISIT with ROGER GARCIA M.D. 02/17/2014 Last Documented On 4 9:01AM ; [facility] Viral infection SAME DAY SICK VISIT with ROGER GARCIA M.D. 02/17/2014 Last Documented On 4 9:01AM ; [facility] Instructions Includes: Instructions for all patient encounters Instructions to patient Instructions for patient Last Documented On 6 2:32PM ; [facility] Instructions for patient Last Documented On 5 1:49PM ; [facility] Instructions for patient Last Documented On 5 5:29PM ; [facility] Maintain a healthy diet Last Documented On 5 5:21PM ; [facility] No Special Instructions or D evices Last Documented On 5 5:21PM ; [facility] Instructions for patient Last Documented On 5 11:16AM ; [facility] Education and Decision Aids were provided during visit for: Patient education about anti biotics: need to finish even if feeling better Last Documented On 6 2:31PM ; [facility] Education and counseling Last Documented On 5 5:29PM ; [facility] Discussed safety practices Last Documented On 5 5:21PM ; [facility] Discussed nutritional needs Last Documented On 5 5:21PM ; [facility] Discussed education and care er Last Documented On 5 5:21PM ; [facility] Discussed activities Last Documented On 5 5:21PM ; [facility] Discussed concerns Last Documented On 5 5:21PM ; [facility] Education and counseling Last Documented On 5 11:16AM ; [facility] Medical Equipment - Implanted Devices Includes: Current and historical Devices No Medical Equipment Recorded Medications Includes: Current and historical Medications Current Medications (continue as prescribed) Amoxicillin 400 MG/5ML Suspension Reconstituted 10/23/2015 Provider: ROGER GARCIA M.D. Diagnosis: Acute maxillary sinusitis, unspecified 2 tsp bid Last Documented On 10/23/2015 4:40PM By ROGER GARCIA MD ; [facility] Past Medications on file ZyrTEC Allergy 10 MG Tablet 07/19/2015 - 08/18/2015 [facility] Diagnosis: Acute nasopharyn gitis [common cold] One tablet daily Last Documented On 5 1:59PM By RALF MIRANDA [facility] ; [facility] Triamcinolone Acetonide 0.5 % Cream 04/24/2015 - 06/09/2015 Provider: ROGER Cole Diagnosis: DERMATITIS NOS Apply twice a day Last Documented On 5 1:17PM By SARAI CAMERON LPN ; [facility] Clindamycin HCl 300 MG Capsule 04/07/2015 - 04/24/2015 Provider: ROGER GARCIA M.D. Diagnosis: SPRAIN OF KNEE & LEG NOS 1 CAPSULE TWO TIMES A DAY Last Documented On 04/24/2015 2:35PM By MARTINA EAST MA ; [facility] Malathion 0.5% EX LOTN 12/15/2014 - 12/29/2014 Provide r: ROGER GARCIA M.D. Diagnosis: use as directed on package Last Documented On 5 9:11AM By SARAI CAMERON LPN ; [facility] Sulfamethoxazole-Trimethopri m 200-40 MG/5ML Suspension 12/05/2014 - 04/07/2015 Provider: ROGER GARCIA M.D. Diagnosis: Cellulitis NOS 2 tsp bid Last Documented On 04/07/2015 10:09AM By MARTINA EAST MA ; [facility] Amoxicillin 400 MG/5ML OR SUSR 02/17/2014 - 12/05/2014 Provider: ROGER GARCIA M.D. Diagnosis: ACUTE SINUSITIS NOS 2 tsp bid Last Documented On 12/05/2014 3:22PM By ROGER GARCIA MD ; [facility] Fluconazole 150 MG OR TABS 12/04/2012 - 12/06/2012 Pro vider: ROGER GARCIA M.D. Diagnosis: 1/2 tablet today then repeat after 1 week Last Documented On 12/04/2012 4:07PM By ROGER GARCIA MD ; [facility] Medications Administered Includes: Administered Medications in patient's chart No Administered Medications Recorded Results Includes: Results from 12/11/2023 through 12/10/2024 No Results Recorded For Specified Dates History of Present Illness History of Present Illness not supported for this document type No History of Present Illness Recorded Social History Description Last Updated Currently in school 10/23/2015 Last Documented On 6 2:32PM ; [facility] No recent decrease in exercise activity 07/19/2015 Last Documented On 5 2:07PM ; [facility] Smoking status : Never smoker 04/26/2015 Last Documented On 5 2:10PM ; [facility] Nutritional quality of diet 04/24/2015 Last Documented On 5 2:10PM ; [facility] Nutritious and satisfying diet 5 Last Documented On 5 2:10PM ; [facility] The racial background was unknown ethnic minority 04/24/2015 Last Documented On 5 2:10PM ; [facility] No tobacco use 04/24/2015 Last Documented On 5 2:10PM ; [facility] Not using alcohol 04/24/2015 Last Documented On 5 2:10PM ; [facility] Not using drugs 04/24/2015 Last Documented On 5 2:10PM ; [facility] Child cared for at home 02/18/2014 Last Documented On 4 9:01AM ; [facility] Medical History Includes: Medical History in patient's chart Description Last Updated No recent change in medical history 05/23 Last Documented On 5 1:47PM ; [facility] No other medical history reported Signs of Insulin Resistance 04/24/2015 Last Documented On 5 2:10PM ; [facility] A PPD was negative 04/24/2015 Last Documented On 5 2:10PM ; [facility] Blood pressure was not high 04/24/2015 Last Documented On 5 2:10PM ; [facility] No cardiac problems 04/24/2015 Last Documented On 5 2:10PM ; [facility] No exposure to tuberculosis 04/24/2015 Last Documented On 5 2:10PM ; [facility] No hearing problems 04/24/2015 Last Documented On 5 2:10PM ; [facility] No heart murmur 04/24/2015 Last Documented On 5 2:10PM ; [facility] No history of asthma 04/24/2015 Last Documented On 5 2:10PM ; [facility] No history of concussion 04/24/2015 Last Documented On 5 2:10PM ; [facility] No history of delayed milestones 015 Last Documented On 5 2:10PM ; [facility] No history of diabetes mellitus 04/24/20 15 Last Documented On 5 2:10PM ; [facility] No history of hematologic disorder 04/24 Last Documented On 5 2:10PM ; [facility] No history of sickle cell abnormality Last Documented On 5 2:10PM ; [facility] No loss of function of one of paired org ans 04/24/2015 Last Documented On 5 2:10PM ; [facility] No orthopedic problems 04/24/2015 Last Documented On 5 2:10PM ; [facility] No previous hospitalizations 04/24/2015 Last Documented On 5 2:10PM ; [facility] No recent severe illness or injury 04/24 Last Documented On 5 2:10PM ; [facility] No Surgery 04/24/2015 Last Documented On 5 2:10PM ; [facility] No trauma to the head 04/24/2015 Last Documented On 5 2:10PM ; [facility] Not born with congenital abnormalities 0 04/24/2015 Last Documented On 5 2:10PM ; [facility] Not carrier of hemophilia A 04/24/2015 Last Documented On 5 2:10PM ; [facility] Taking OTC pain medication / fever. Matt Solis 12/05/2014 Last Documented On 5 3:23PM ; [facility] Born by vaginal delivery 04/03/2011 Last Documented On 1 2:02PM ; [facility] Bottle-fed SIMILAC WITH IRON 04/03/2011 Last Documented On 1 2:02PM ; [facility] Gestational age: 37 04/03/2011 Last Documented On 1 2:02PM ; [facility] History of length at 19:1/2 in Last Documented On 1 2:02PM ; [facility] Patient's weight 6:3 lbs 1 Last Documented On 1 2:02PM ; [facility] Family History Includes: Family History in patient's chart Description Last Updated Family history unchanged 06/09/2015 Last Documented On 5 1:47PM ; [facility] No family history of diabetes mellitus 0 04/24/2015 Last Documented On 5 2:10PM ; [facility] No family history of sudden early deaths 04/24/2015 Last Documented On 5 2:10PM ; [facility] Cancer 04/03/2011 Last Documented On 1 2:02PM ; [facility] Family history of arthritis 04/03/2011 Last Documented On 1 2:02PM ; [facility] Family history of blood pressure was hig h 04/03/2011 Last Documented On 1 2:02PM ; [facility] Family history of stroke syndrome 2010 Last Documented On 1 2:02PM ; [facility] Review of Systems Review of [...] atient Last Documented On 1 2:01PM ; [facility] DTaP 2 2003 Complete (Reported) P atient Last Documented On 1 2:01PM ; [facility] DTaP 3 05/31/2004 Complete (Reported) P atient Last Documented On 1 2:01PM ; [facility] DTaP 4 04/13/2008 Complete (Reported) P atient Last Documented On 1 2:01PM ; [facility] DTaP 5 12/07/2008 Complete (Reported) P atient Last Documented On 1 2:01PM ; [facility] Hep A, ped/adol, (HAVRIX-PEDS)-2 dose 1 04/24/2015 Right Arm Complet e (Administered) [facility] Last Documented On 5 4:18PM ; [facility] Hep B (Engerix-B/Recombivax HB) Ped/Adult 3 dose 1 2003 Complete (Reported) Pa tient Last Documented On 1 2:01PM ; [facility] Hep B (Engerix-B/Recombivax HB) Ped/Adult 3 dose 2 2003 Complete (Reported) Pa tient Last Documented On 1 2:01PM ; [facility] Hep B (Engerix-B/Recombivax HB) Ped/Adult 3 dose 3 05/31/2004 Complete (Reported) Pa tient Last Documented On 1 2:01PM ; [facility] HIb-PRP-OMP (PedvaxHIB) 3 dose 1 2003 Complete (Reported) Patient Last Documented On 1 2:01PM ; [facility] HIb-PRP-OMP (PedvaxHIB) 3 dose 2 05/31/2004 Complete (Reported) Patient Last Documented On 1 2:01PM ; [facility] HPV, (quadrivalent) Gardasil 1 04/24/2015 Left Arm Complete (Administered) [facility] Last Documented On 5 4:18PM ; [facility] Meningococcal ACYW-135 (Menactra) 1 04/24/2015 Left Arm Complete (Administered) [facility] Last Documented On 5 4:18PM ; [facility] MMR 1 04/13/2008 Complete (Reported) P atient Last Documented On 1 2:01PM ; [facility] MMR 2 12/07/2008 Complete (Reported) P atient Last Documented On 1 2:01PM ; [facility] PCV 13 (Prevnar) 1 2003 Complete (Re ported) Patient Last Documented On 1 2:01PM ; [facility] PCV 13 (Prevnar) 2 2003 Complete (Re ported) Patient Last Documented On 1 2:01PM ; [facility] PCV 13 (Prevnar) 3 05/31/2004 Complete (Re ported) Patient Last Documented On 1 2:01PM ; [facility] Polio ,IPV (IPOL) 1 2003 Complete (R eported) Patient Last Documented On 1 2:01PM ; [facility] Polio ,IPV (IPOL) 2 2003 Complete (R eported) Patient Last Documented On 1 2:01PM ; [facility] Polio ,IPV (IPOL) 3 05/31/2004 Complete (R eported) Patient Last Documented On 1 2:01PM ; [facility] Polio ,IPV (IPOL) 4 12/07/2008 Complete (R eported) Patient Last Documented On 1 2:01PM ; [facility] Tdap (Boostrix) 1 04/24/2015 Right Arm Complete (A dministered) [facility] Last Documented On 5 4:18PM ; [facility] Varicella 1 04/13/2008 Complete (Reported) Patient Last Documented On 1 2:01PM ; [facility] Varicella (Chickenpox) 1 04/24/2015 Right Arm Complete (Administered) [facility] Last Documented On 5 4:18PM ; [facility] Allergies Includes: Active, inactive, and resolved Allergies No Known Allergies Clinical Notes Includes: Signed Clinical Notes starting from 10/11/2022 No Clinical Notes Recorded
--- OUTSIDE RECORDS SUMMARY | 2024-12-10 06:27 | XMS_ITS ---
Care Plan - [facility] Created on: December 10, 2024 TRENTON LIU : 2005 Sex: Female Author Organization [facility] Address [address] [place] [address] Phone Care Team Providers Care Laboratory Animal Care Veterinarian Name Role Phone Unavailable Unavailable Unavailable
--- OUTSIDE RECORDS SUMMARY | 2024-12-10 06:28 | XMS_ITS | Clinical Summary ---
Author Organization [facility] Address [address] [place] [address] Phone Care Team Providers Care Manager Employee Benefits Name Role Phone Unavailable Unavailable Unavailable Reason for Visit and Chief Complaint The Chief Complaint is: With runny nose and congestion for days, no fever, coughing also Problems Includes: Problems addressed during this encounter and other active Problems Current Visit Onset Date Resolved Date Provider Conditio n Status Sinusitis Acute 10/23/2015 ROGER BYNUM M.D. Active Last Documented On 10/23/2015 2:31PM ; [facility] Note: Unchanged Viral Syndrome 10/23/2015 ROGER Nicholson M.D. Active Last Documented On 10/23/2015 2:31PM ; [facility] Note: Unchanged Sinusitis Acute 02/18/2014 Unknown ROGER BYNUM M.D. Resolved Last Documented On 12/05/2014 3:22PM ; [facility] Note: Unchanged Past Visits Onset Date Resolved Date Provider Condition Status Dermatitis 04/24/2015 ROGER GARCIA M.D. Inactive Last Documented On 10/23/2015 2:31PM ; [facility] Note: Unchanged Routine History and Physical Well Child (6 - 12 Yrs) 04/24/2015 ROGER GARCIA M.D. Inactive Last Documented On 10/23/2015 2:31PM ; [facility] Note: Unchanged Plan of Treatment - Return to the clinic if condition worsens or new symptoms arise - Last Documented On 10/23/2015 2:32PM ; [facility] - Follow-up visit as needed with an office visit. - Last Documented On 10/23/2015 2:32PM ; [facility] - Patient to call if problem develops - Last Documented On 10/23/2015 2:32PM ; [facility] Instructions to patient Instructions for patient Last Documented On 6 2:32PM ; [facility] Education and Decision Aids were provided during visit for: Patient education about anti biotics: need to finish even if feeling better Last Documented On 6 2:31PM ; [facility] Assessments Includes: Assessments from this encounter Findings - Acute sinusitis - Last Documented On 10/23/2015 2:32PM ; [facility] - Viral syndrome - Last Documented On 10/23/2015 2:32PM ; [facility] Instructions Includes: Instructions from this encounter Instructions to patient Instructions for patient Last Documented On 6 2:32PM ; [facility] Education and Decision Aids were provided during visit for: Patient education about anti biotics: need to finish even if feeling better Last Documented On 6 2:31PM ; [facility] Medical Equipment - Implanted Devices Includes: Current Devices No Medical Equipment Recorded Medications Includes: Medications discussed during this encounter and other current Medications New / Renewed during this visit ROGER GARCIA M.D. on 10/23/2015 Amoxicillin 400 MG/5ML Suspension Reconstituted Provider: ROGER GARCIA M.D. 10 day supply: 200 mL, 0 refills Diagnosis: Acute maxillary sinusitis, unspecified 2 tsp bid Pharmacy: [facility] [address], [id number] - Last Documented On 10/23/2015 4:40PM By ROGER GARCIA MD ; [facility] Past Medications on file ZyrTEC Allergy 10 MG Tablet 07/19/2015 - 08/18/2015 [facility] BUSINESS ETHICS PROFESSOR- Diagnosis: Acute nasopharyn gitis [common cold] One tablet daily Last Documented On 5 1:59PM By RALF MIRANDA BUSINESS ETHICS PROFESSOR- ; [facility] Malathion 0.5% EX LOTN 12/15/2014 - 12/29/2014 Provide r: ROGER GARCIA M.D. Diagnosis: use as directed on package Last Documented On 5 9:11AM By SARAI CAMERON LPN ; [facility] Fluconazole 150 MG OR TABS 12/04/2012 - 12/06/2012 Pro vider: ROGER GARCIA M.D. Diagnosis: 1/2 tablet today then repeat after 1 week Last Documented On 12/04/2012 4:07PM By ROGER GARCIA MD ; [facility] Medications Administered Includes: Administered Medications from this encounter No Administered Medications Recorded Vital Signs Includes: Vital Signs from this encounter Vital Name 10/23/2015 02:12P Temp-Tympanic (F) 98.3 Height (in) 59 Weight (lb) 100 Body Mass Index (kg/m2) 20.2 BMI Percentile (percentile) 73 Body Surface Area (m2) 1.4 Last Documented: On 10/23/2015 2:13PM ; [facility] Results Includes: Results [...] 10/23/2015 Last Documented On 6 2:32PM ; [facility] Smoking Status Unknown Procedures and Surgical History Includes: Procedures from this encounter Procedures Code Diagnosis Performing Provider Service L ocation Service Date medication instruction Last Documented On 6 2:31PM ; [facility] the options include decongestants as nee ded per product instructions Last Documented On 6 2:29PM ; [facility] the options include antihistamines as ne eded per product instructions Last Documented On 6 2:29PM ; [facility] education and instructions Last Documented On 6 2:32PM ; [facility] the options include close observation Last Documented On 6 2:29PM ; [facility] Pt to use OTC expectorant product as nee ded per product instruction.~ Last Documented On 6 2:29PM ; [facility] Pt to use prescription as ordered. Purpo se of and use of medication discussed.~ Last Documented On 6 2:29PM ; [facility] plan of care reviewed and agreed to nader khan Last Documented On 6 2:31PM ; [facility] Clinical summary provided to patient Last Documented On 6 2:32PM ; [facility] Medical History Includes: Medical History addressed during this encounter No Medical History Recorded Family History Includes: Family History addressed during this encounter Description Last Updated Family history unchanged 06/09/2015 Last Documented On 6 2:31PM ; [facility] No family history of diabetes mellitus 0 04/24/2015 Last Documented On 6 2:31PM ; [facility] No family history of sudden early deaths 04/24/2015 Last Documented On 6 2:31PM ; [facility] Cancer 04/03/2011 Last Documented On 6 2:31PM ; [facility] Family history of arthritis 04/03/2011 Last Documented On 6 2:31PM ; [facility] Family history of blood pressure was hig h 04/03/2011 Last Documented On 6 2:31PM ; [facility] Family history of stroke syndrome 2010 Last Documented On 6 2:31PM ; [facility] Review of Systems Includes: Review of [...] SAME DAY SICK VISIT ROGER GARCIA M.D. [facility] 10/23/19 16 2:15PM 2:28PM Sinusitis Acute,Viral Syndrome Clinical Notes Includes: Clinical Notes from this encounter No Clinical Notes Recorded
--- OUTSIDE RECORDS SUMMARY | 2024-12-10 06:28 | XMS_ITS | Clinical Summary ---
Author Organization [facility] Address [address] [place] [address] Phone Care Team Providers Care Hydrographic Engineer Name Role Phone Unavailable Unavailable Unavailable Reason [...] Documented On 10/23/2015 2:31PM ; [facility] Note: Unchanged Viral Syndrome 10/23/2015 ROGER Nicholson M.D. Active Last Documented On 10/23/2015 2:31PM ; [facility] Note: Unchanged Plan of Treatment - Return to the clinic if condition worsens or new symptoms arise - Last Documented On 07/19/2015 2:07PM ; [facility] - Patient will call for appointment as needed - Last Documented On 07/19/2015 2:07PM ; [facility] Instructions to patient Instructions for patient Last Documented On 5 1:49PM ; [facility] Assessments Includes: Assessments from this encounter Findings - Common cold - Last Documented On 07/19/2015 2:07PM ; [facility] Instructions Includes: Instructions from this encounter Instructions to patient Instructions for patient Last Documented On 5 1:49PM ; [facility] Medical Equipment - Implanted Devices Includes: Current Devices No Medical Equipment Recorded Medications Includes: Medications discussed during this encounter and other current Medications New / Renewed during this visit RALF MIRANDA [facility] on 07/19/2015 ZyrTEC Allergy 10 MG Tablet Provider: RALF MIRANDA [facility]- 30 day supply: 30 tablet, 0 refills Diagnosis: Acute nasopharyngitis [commo n cold] One tablet daily Pharmacy: [facility] [address], [phone] - Last Documented On 5 1:59PM By RALF MIRANDA [facility] ; [facility] Current Medications (continue as prescribed) Amoxicillin 400 MG/5ML Suspension Reconstituted 10/23/2015 Provider: ROGER GARCIA M.D. Diagnosis: Acute maxillary sinusitis, unspecified 2 tsp bid Last Documented On 10/23/2015 4:40PM By ROGER GARCIA MD ; [facility] Past Medications on file Malathion 0.5% EX LOTN 12/15/2014 - 12/29/2014 Provide r: ROGER GARCIA M.D. Diagnosis: use as directed on package Last Documented On 5 9:11AM By SARAI CAMERON LPN ; [facility] Fluconazole 150 MG OR TABS 12/04/2012 - 12/06/2012 Pro vider: ROGER GARCIA M.D. Diagnosis: 1/2 tablet today then repeat after 1 week Last Documented On 12/04/2012 4:07PM By ROGER GARCIA MD ; [facility] Medications Administered Includes: Administered Medications from this encounter No Administered Medications Recorded Vital Signs Includes: Vital Signs from this encounter Vital Name 07/19/2015 01:33P Blood Pressure Sitting (mmHg) 102/60 Temp-Tympanic (F) 97.7 Height (in) 57.5 Weight (lb) 91.8 Body Mass Index (kg/m2) 19.5 BMI Percentile (percentile) 67 Body Surface Area (m2) 1.3 Last Documented: On 07/19/2015 1:38PM ; [facility] Results Includes: Results discussed [...] 10/23/2015 Last Documented On 5 1:49PM ; [facility] No recent decrease in exercise activity 07/19/2015 Last Documented On 5 2:07PM ; [facility] Smoking status : Never smoker 04/26/2015 Last Documented On 5 1:49PM ; [facility] Nutritional quality of diet 04/24/2015 Last Documented On 5 1:49PM ; [facility] Nutritious and satisfying diet Last Documented On 5 1:49PM ; [facility] The racial background was unknown ethnic minority 04/24/2015 Last Documented On 5 1:49PM ; [facility] Not using alcohol 04/24/2015 Last Documented On 5 1:49PM ; [facility] Not using drugs 04/24/2015 Last Documented On 5 1:49PM ; [facility] Child cared for at home 02/18/2014 Last Documented On 5 1:49PM ; [facility] Procedures and Surgical History Includes: Procedures from this encounter Procedures Code Diagnosis Performing Provider Service L ocation Service Date Patient verbalizes understanding Last Documented On 5 1:49PM ; [facility] Increase fluids Last Documented On 5 1:49PM ; [facility] Clinical summary provided to patient Last Documented On 5 1:49PM ; [facility] Medical History Includes: Medical History addressed during this encounter Description Last Updated No recent change in medical history 05/23 Last Documented On 5 1:49PM ; [facility] No other medical history reported Signs of Insulin Resistance 04/24/2015 Last Documented On 5 1:49PM ; [facility] A PPD was negative 04/24/2015 Last Documented On 5 1:49PM ; [facility] Blood pressure was not high 04/24/2015 Last Documented On 5 1:49PM ; [facility] No cardiac problems 04/24/2015 Last Documented On 5 1:49PM ; [facility] No exposure to tuberculosis 04/24/2015 Last Documented On 5 1:49PM ; [facility] No hearing problems 04/24/2015 Last Documented On 5 1:49PM ; [facility] No heart murmur 04/24/2015 Last Documented On 5 1:49PM ; [facility] No history of asthma 04/24/2015 Last Documented On 5 1:49PM ; [facility] No history of concussion 04/24/2015 Last Documented On 5 1:49PM ; [facility] No history of delayed milestones 015 Last Documented On 5 1:49PM ; [facility] No history of diabetes mellitus 04/24/20 15 Last Documented On 5 1:49PM ; [facility] No history of hematologic disorder 04/24 Last Documented On 5 1:49PM ; [facility] No history of sickle cell abnormality Last Documented On 5 1:49PM ; [facility] No loss of function of one of paired org ans 04/24/2015 Last Documented On 5 1:49PM ; [facility] No orthopedic problems 04/24/2015 Last Documented On 5 1:49PM ; [facility] No previous hospitalizations 04/24/2015 Last Documented On 5 1:49PM ; [facility] No recent severe illness or injury 04/24 Last Documented On 5 1:49PM ; [facility] No Surgery 04/24/2015 Last Documented On 5 1:49PM ; [facility] No trauma to the head 04/24/2015 Last Documented On 5 1:49PM ; [facility] Not born with congenital abnormalities 0 04/24/2015 Last Documented On 5 1:49PM ; [facility] Not carrier of hemophilia A 04/24/2015 Last Documented On 5 1:49PM ; [facility] Born by vaginal delivery 04/03/2011 Last Documented On 5 1:49PM ; [facility] Gestational age: 37 04/03/2011 Last Documented On 5 1:49PM ; [facility] History of length at 19:1/2 in Last Documented On 5 1:49PM ; [facility] Patient's weight 6:3 lbs 1 Last Documented On 5 1:49PM ; [facility] Family History Includes: Family History addressed during this encounter Description Last Updated Family history unchanged 06/09/2015 Last Documented On 5 1:49PM ; [facility] No family history of diabetes mellitus 0 04/24/2015 Last Documented On 5 1:49PM ; [facility] No family history of sudden early deaths 04/24/2015 Last Documented On 5 1:49PM ; [facility] Cancer 04/03/2011 Last Documented On 5 1:49PM ; [facility] Family history of arthritis 04/03/2011 Last Documented On 5 1:49PM ; [facility] Family history of blood pressure was hig h 04/03/2011 Last Documented On 5 1:49PM ; [facility] Family history of stroke syndrome 2010 Last Documented On 5 1:49PM ; [facility] Review of Systems Includes: [...] SAME DAY SICK VISIT RALF MIRANDA HNP- WEB UI DESIGNER-BC [facility] 07/19/20 15 1:22PM 1:59PM Common Cold Clinical Notes Includes: Clinical Notes from this encounter No Clinical Notes Recorded
--- OUTSIDE RECORDS SUMMARY | 2024-12-10 06:28 | XMS_ITS | Clinical Summary ---
Author Organization [facility] Address [address] [place] [address] Phone Care Team Providers Care Metal Base Blocker Name Role Phone Unavailable Unavailable Unavailable Reason [...] Active Last Documented On 10/23/2015 2:31PM ; [facility] Note: Unchanged Viral Syndrome 10/23/2015 ROGER Nicholson M.D. Active Last Documented On 10/23/2015 2:31PM ; [facility] Note: Unchanged Plan of Treatment - Return to the clinic if condition worsens or new symptoms arise - Last Documented On 06/09/2015 1:47PM ; [facility] - Patient will call for appointment as needed - Last Documented On 06/09/2015 1:47PM ; [facility] Assessments Includes: Assessments from this encounter Findings - Constipation - Last Documented On 06/09/2015 1:47PM ; [facility] - Dysuria - Last Documented On 06/09/2015 1:47PM ; [facility] Medical Equipment - Implanted Devices Includes: Current Devices No Medical Equipment Recorded Medications Includes: Medications discussed during this encounter and other current Medications Discontinued / Stopped on this date ROGER GARCIA M.D. on 04/24/2015 Triamcinolone Acetonide 0.5 % Cream Provi dianna: ROGER GARCIA M.D. Diagnosis: DERMATITIS NOS Last Documented On 5 1:17PM By SARAI CAMERON LPN ; [facility] Current Medications (continue as prescribed) Amoxicillin 400 MG/5ML Suspension Reconstituted 10/23/2015 Provider: ROGER GARCIA M.D. 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- ; [facility] Malathion 0.5% EX LOTN 12/15/2014 - 12/29/2014 Provide r: ROGER GARCIA M.D. Diagnosis: use as directed on package Last Documented On 5 9:11AM By SARAI CAMERON LPN ; [facility] Fluconazole 150 MG OR TABS 12/04/2012 - 12/06/2012 Pro vider: ROGER GARCIA M.D. Diagnosis: 1/2 tablet today then repeat after 1 week Last Documented On 12/04/2012 4:07PM By ROGER GARCIA MD ; [facility] Medications Administered Includes: Administered Medications from this encounter No Administered Medications Recorded Vital Signs Includes: Vital Signs from this encounter Vital Name 06/09/2015 01:10P Blood Pressure Sitting (mmHg) 110/70 Temp-Tympanic (F) 97.9 Height (in) 57.5 Weight (lb) 91 Body Mass Index (kg/m2) 19.4 BMI Percentile (percentile) 67 Body Surface Area (m2) 1.3 Last Documented: On 06/09/2015 1:16PM ; [facility] Results Includes: Results discussed during this encounter Urinalysis Manual Lab Entry Ordered by RALF MIRANDA [facility] on 06/09/2015 Collected: Reported: 06/09/2015 13:25 Last Documented On 5 1:25PM ; [facility] Reviewed on 06/09/2015; All test results are final unless otherwise noted. color yellow (Straw-yellow) N (Normal) Last Documented On 5 1:25PM ; [facility] clarity clear (clear) N (Normal) Last Documented On 5 1:25PM ; [facility] Glucose neg (70-150mg/dL) N (Normal) Last Documented On 5 1:25PM ; [facility] Bilirubin neg N (Normal) Last Documented On 5 1:25PM ; [facility] Ketone neg N (Normal) Last Documented On 5 1:25PM ; [facility] SP [place] 1.025 (1.003-1.040) N (Normal) Last Documented On 5 1:25PM ; [facility] pH 7.0 (5.00-9.00) N (Normal) Last Documented On 5 1:25PM ; [facility] Protein neg N (Normal) Last Documented On 5 1:25PM ; [facility] Urobilinogen 0.2 (0.2-1.0 EU/dL) N (Normal) Last Documented On 5 1:25PM ; [facility] Nitrate neg N (Normal) Last Documented On 5 1:25PM ; [facility] Blood neg N (Normal) Last Documented On 5 1:25PM ; [facility] Leukocyte neg N (Normal) Last Documented On 5 1:25PM ; [facility] History of Present Illness Includes: History of [...] 10/23/2015 Last Documented On 5 1:17PM ; [facility] Smoking status : Never smoker 04/26/2015 Last Documented On 5 1:17PM ; [facility] Nutritional quality of diet 04/24/2015 Last Documented On 5 1:17PM ; [facility] Nutritious and satisfying diet 5 Last Documented On 5 1:17PM ; [facility] The racial background was unknown ethnic minority 04/24/2015 Last Documented On 5 1:17PM ; [facility] Not using alcohol 04/24/2015 Last Documented On 5 1:17PM ; [facility] Not using drugs 04/24/2015 Last Documented On 5 1:17PM ; [facility] Procedures and Surgical History Includes: Procedures from this encounter Procedures Code Diagnosis Performing Provider Service L ocation Service Date Clinical summary provided to patient Last Documented On 5 1:17PM ; [facility] Medical History Includes: Medical History addressed during this encounter Description Last Updated No recent change in medical history 05/23 Last Documented On 5 1:47PM ; [facility] No other medical history reported Signs of Insulin Resistance 04/24/2015 Last Documented On 5 1:17PM ; [facility] A PPD was negative 04/24/2015 Last Documented On 5 1:17PM ; [facility] Blood pressure was not high 04/24/2015 Last Documented On 5 1:17PM ; [facility] No cardiac problems 04/24/2015 Last Documented On 5 1:17PM ; [facility] No exposure to tuberculosis 04/24/2015 Last Documented On 5 1:17PM ; [facility] No hearing problems 04/24/2015 Last Documented On 5 1:17PM ; [facility] No heart murmur 04/24/2015 Last Documented On 5 1:17PM ; [facility] No history of asthma 04/24/2015 Last Documented On 5 1:17PM ; [facility] No history of concussion 04/24/2015 Last Documented On 5 1:17PM ; [facility] No history of delayed milestones 015 Last Documented On 5 1:17PM ; [facility] No history of diabetes mellitus 04/24/20 15 Last Documented On 5 1:17PM ; [facility] No history of hematologic disorder 04/24 Last Documented On 5 1:17PM ; [facility] No history of sickle cell abnormality Last Documented On 5 1:17PM ; [facility] No loss of function of one of paired org ans 04/24/2015 Last Documented On 5 1:17PM ; [facility] No orthopedic problems 04/24/2015 Last Documented On 5 1:17PM ; [facility] No previous hospitalizations 04/24/2015 Last Documented On 5 1:17PM ; [facility] No recent severe illness or injury 04/24 Last Documented On 5 1:17PM ; [facility] No Surgery 04/24/2015 Last Documented On 5 1:17PM ; [facility] No trauma to the head 04/24/2015 Last Documented On 5 1:17PM ; [facility] Not born with congenital abnormalities 0 04/24/2015 Last Documented On 5 1:17PM ; [facility] Not carrier of hemophilia A 04/24/2015 Last Documented On 5 1:17PM ; [facility] Born by vaginal delivery 04/03/2011 Last Documented On 5 1:17PM ; [facility] Gestational age: 37 04/03/2011 Last Documented On 5 1:17PM ; [facility] History of length at 19:1/2 in Last Documented On 5 1:17PM ; [facility] Patient's weight 6:3 lbs 1 Last Documented On 5 1:17PM ; [facility] Family History Includes: Family History addressed during this encounter Description Last Updated Family history unchanged 06/09/2015 Last Documented On 5 1:47PM ; [facility] No family history of diabetes mellitus 0 04/24/2015 Last Documented On 5 1:17PM ; [facility] No family history of sudden early deaths 04/24/2015 Last Documented On 5 1:17PM ; [facility] Cancer 04/03/2011 Last Documented On 5 1:17PM ; [facility] Family history of arthritis 04/03/2011 Last Documented On 5 1:17PM ; [facility] Family history of blood pressure was hig h 04/03/2011 Last Documented On 5 1:17PM ; [facility] Family history of stroke syndrome 2010 Last Documented On 5 1:17PM ; [facility] Review of Systems Includes: Review of [...] Time Diagnosis PROBLEM VISIT RALF MIRANDA PMHNP-BC SENIOR PROJECT MANAGER ENGINEERING-BC [facility] 06/09/20 15 1:00PM 1:40PM Constipation ,Dysuria Clinical Notes Includes: Clinical Notes from this encounter No Clinical Notes Recorded
--- NOTE | 2024-12-10 06:37 | ED_ITS ---
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 No other injuries noted. complaint: injury to: right Onset (ago): hour(s) Other Extremity Injury: Right: arm ( tenderness with palpation and movement) Handedness: right Place: work Severity: moderate Severity scale (1-10): 5 Exacerbating factors: movement of extremity Context: direct blow Related Data Allergies Allergy/AdvReac Type Severity Reaction Status Date / Time No Known Allergies Allergy Verified 12/10/24 06:25 Review of Systems Review of Systems: All systems reviewed & are unremarkable except as noted in HPI and below PMFSH Past Medical History Medical History Viral URI with cough Sinusitis Surgical History Surgical History No pertinent past surgical history Family History Family History Mother Family history non-contributory Social History Social History Smoking status: Never smoker Alcohol intake: never Substance use: never Living arrangements: with family Gender identity (if verbalized by the patient): Female Spiritual care concerns: No Exam Const: General: healthy appearing and no acute distress Nutritional Appearance: well nourished Orientation/consciousness: patient oriented x3 Limitations: no limitations Chest: Chest palpation & inspection: normal inspection of the chest Resp: Effort & Inspection: normal respiratory effort Auscultation: clear to auscultation bilaterally Cardio: Rate: regular rate Rhythm: regular rhythm GI: GI Palp: Yes Soft to palpation Auscultation: normal bowel sounds Back/Spine/Pelvis: Back: no CVA tenderness Skin: General skin exam: normal color Rashes: no rashes Wounds: no wounds Neuro: General: patient oriented x3, moves all extremities, no meningeal signs and no focal motor deficits Extrem: Other: Tenderness right upper arm with movement and palpation Course Course Emergency Course: patient declined any pain medicine at this time, x-ray performed shows no acute fractures. Vital Signs Vital signs: Vital Signs Temperature 36.8 C 12/10/24 06:18 Pulse Rate 83 12/10/24 06:18 Respiratory Rate 18 12/10/24 06:18 Blood Pressure 134/90 12/10/24 06:18 Pulse Oximetry 100 12/10/24 06:18 Oxygen Delivery Room Air 12/10/24 06:18 Temperature 36.8 C 12/10/24 06:18 Pulse Rate 83 12/10/24 06:18 Respiratory Rate 18 12/10/24 06:18 Blood Pressure 134/90 12/10/24 06:18 Pulse Oximetry 100 12/10/24 06:18 Oxygen Delivery Room Air 12/10/24 06:18 Critical Care Time Critical Care Time Critical Care Time: No Discharge Plan Discharge Clinical Impression: Arm sprain Patient Disposition: Home, Self-Care Condition: Stable Instructions: Antibiotic Form, Musculoskeletal Pain (ED) Additional Instructions: advised take medication as prescribed and to follow with primary care physician if symptoms persist or worsen. Patient Language: Turkish Prescriptions: New naproxen 500 mg tablet 500 mg PO BID PRN (Reason: pain) Qty: 14 0RF No Action fluticasone propionate [Flonase Allergy Relief] 50 mcg/actuation spray,suspension 1 spray intranasal BID Qty: 16 0RF Rx Instructions: administer into each nostril Follow-up/Referrals: UNKNOWN,DOCTOR [Primary Care Provider] - Time of Disposition: 06:41
== END 2024-12-10 06:44 | disposition home or self-care (01) ==
PROVIDERS: Emergency Provider Emergency Medicine
DX: S43.401A Unspecified sprain of right shoulder joint, initial encounter (principal); W55.22XA Struck by cow, initial encounter
CPT/HCPCS: 73060; 99283